=== PATIENT | male | born 1955 | race Caucasian/White ===

== ENCOUNTER 2018-08-09 15:41 | Emergency (ER) | payer OTHER, SELFPAY ==
[2018-08-09 15:41] VITALS: BP 142/80; PULSE 106; RESP 16; TEMP 36.9; O2SAT 93; BMI 38.0
--- NOTE | 2018-08-09 16:11 | CT_ITS ---
STUDY: CT ABDOMEN AND PELVIS WITHOUT CONTRAST REASON FOR EXAM: Male, 63 years old. Diverticulitis?. RADIATION DOSAGE (If Supplied By Facility): CTDIvol = ( 17.07 ) mGy, DLP = ( 1270.48 ) mGycm TECHNIQUE: Transaxial images were obtained from the dome of the diaphragm to the symphysis pubis without oral contrast, and without intravenous contrast. Sagittal and coronal images were reconstructed. Individualized dose optimization techniques were used for this CT. COMPARISON: None. FINDINGS: The visualized lung bases are unremarkable. The visualized portions of the heart are within normal limits. Normal liver. Normal gallbladder and extrahepatic biliary system. Normal spleen. Normal pancreas. Normal bilateral adrenal glands. There appear to be bilateral peripelvic cysts. There are additional cysts within the right kidney. There is a small hiatal hernia. Normal small intestine. There are diverticula throughout the colon. There is circumferential wall thickening of the sigmoid colon associated with adjacent stranding. There are anastomotic sutures within the distal sigmoid colon. The appendix is visualized and appears normal. There is diffuse atherosclerotic calcification of the abdominal aorta, without a demonstrated aneurysm. Normal inferior vena cava. Normal retroperitoneum. Normal urinary bladder. Normal abdominal wall. There is a grade 2 anterior spondylolisthesis of L5 on S1. There are degenerative changes of the lumbar spine. CT/Abdomen/Pelvis W IV Cont ONLY IMPRESSION: Mild acute diverticulitis of the sigmoid colon. Atherosclerosis. Hiatal hernia. Degenerative changes. Grade 2 anterior spondylosis is of L5 on S1. Electronically Signed: Francy Rao MD at 17:48 EST Tel , Service support ,
[2018-08-09 16:41] VITALS: TEMP 36.9
[2018-08-09] MEDS: 0.9% Normal Saline 1,000 ML 1000 ML IV (16:57)
[2018-08-09 17:02] VITALS: TEMP 36.9
[2018-08-09 17:03] LABS: Absolute Lymphocyte Count 2.97 X10^3/ul (0.83-4.51); Absolute Neutrophil Count 6.9 X10^3/uL (2.0-7.7); Basophil# 0.04 X10^3/uL; Basophil% 0.3 % (0-1); Eosinophil# 0.23 X10^3/uL; Eosinophils% 1.9 % (0-5); Hematocrit 48.8 % (40-54); Hemoglobin 16.8 g/dl (13.0-16.5); Lymphocyte # 2.97 X10^3/ul (4.0); Lymphocyte % 24.4 % (19-41); Mean Corp Hgb Conc 34.4 g/gl (32-36); Mean Corpuscular Hgb 28.1 pg (27.0-32.0); Mean Corpuscular Volume 81.6 fL (80-94); Mean Platelet Vol. 10.2 fl (6.2-12.0); Monocyte# 1.99 X10^3/uL; Monocyte% 16.4 % (0-10); Neutrophil # 6.89 X10^3/uL (2.7-7.7); Neutrophil % 56.8 % (47-70); Platelet Count 248 K/mm3 (150-450); RBC Distribution Width SD 41.7 fl (35.1-43.9); Red Blood Count 5.98 M/mm3 (4.6-6.2); White Blood Count 12.2 K/mm3 (4.4-11.0)
[2018-08-09 17:08] LABS: Bacteria 0 SEEN /hpf (None Seen); Mucous, Urine 0 SEEN /hpf (<or=2+); Red Blood Cells-Urine 0 SEEN /hpf (0-5); Squamous Epithelial Cells - UA 0 SEEN /hpf (0-5)
[2018-08-09 17:12] LABS: ALB/GLOB Ratio 0.9 RATIO (0.9-2.4); AST(SGOT) 21 U/L (15-37); Alanine Aminotransfer ALT/SGPT 33 U/L (16-61); Albumin, Serum 3.5 g/dL (3.2-5.0); Alkaline Phosphatase 56 U/L (45-117); Anion Gap 9 (5-15); BUN 17 mg/dL (7-18); BUN/Creat Ratio 14.8 RATIO (10-20); Calcium,Total 8.7 mg/dL (8.5-10.1); Chloride 103 mmol/L (98-107); Creatinine, Serum 1.15 mg/dL (0.70-1.30); EST Glomerular Filtration Rate 68 mL/min (>60); Est Glom Filt Rate - Afr Amer 82 mL/min (>60); Glucose 104 mg/dL (74-106); Lipase 231 U/L (73-393); Potassium 3.2 mmol/L (3.5-5.1); Protein, Total 7.5 g/dL (6.4-8.2); Sodium Level 140 mmol/L (136-145)
[2018-08-09 17:22] LABS: Differential Indicated SCAN CRITERIA MET; POSITIVE COUNT NO; POSITIVE DIFFERENTIAL YES; POSITIVE MORPHOLOGY NO
[2018-08-09 17:26] LABS: Color, Urine Yellow (Yellow); Glucose, Dipstick Normal (Normal); Ketone-Dipstick 5 mg/dl (Negative); Leukocyte Esterase-Dipstick 25 /ul (Negative); Nitrite-Dipstick Negative (Negative); Occult Blood-Urine 10 /ul (Negative); Protein-Dipstick 15 mg/dl (Negative); Urine Bilirubin Dipstick Negative (Negative); Urine Clarity Clear (Clear); Urine Urobilinogen Normal (Normal)
[2018-08-09 17:34] LABS: Differential Comment SCANNED
[2018-08-09 17:43] LABS: White Blood Cells 0-5 SEEN /hpf (0-5)
--- NOTE | 2018-08-09 18:06 | ED.VISSUMM ---
- ER Visit Summary Date of Service: 08/09/18 Chief Complaint: Diarrhea History of Present Illness: The patient is a 63 M with diarrhea for 4 days. Denies bleeding or black or tarry stools. He has had low-grade fevers and pain with bowel movements. No travel, recent antibiotics, or exposures to people with diarrhea. He has a history of similar symptoms in the past with diverticulitis. He required a colectomy because he had continued inflammation and infection despite multiple rounds of antibiotics. Physical Examination: Afebrile and vital signs unremarkable except for heart rate of 106. Patient is alert and oriented. Nontoxic and in no acute distress. Heart regular. Lungs clear. Abdomen soft and nontender. Skin appears normal. Test Results: White count 12.2, hemoglobin 16.8. Potassium 3.2, total bilirubin 1.7. Lipase normal. Urinalysis unremarkable. CT showed diverticulitis without complication. He has atherosclerosis, hiatal hernia, degenerative changes, and grade 2 anterior spondylosis L5 on S1. Emergency Department Course and Treatment: Patient treated with fluids. He declined pain medicine. Workup showed diverticulitis without complication. Labs as noted above. Clinically, he appears very well. I believe he is appropriate for outpatient treatment and started him on Cipro and Flagyl. He declined pain medicine. I advised him that treatment can fail and that if he is getting sicker or having problems he should come back right away. Otherwise he will follow-up with his doctor. I reviewed the findings with the patient and his family and all questions were answered. Patient will be discharged. Treatment Plan: As above Disposition: Discharge Impression: 1. Acute diverticulitis This note was generated with SmartThingsation software. It may contain incorrect words, spelling, and punctuation that were not noted in review of the chart prior to signing ED Disposition - Plan for ED Patient: Referrals: Shane Cartwright MD [Primary Care Provider] -
--- NOTE | 2018-08-09 18:09 | ED.DCSUM_ITS ---
- ER Visit Summary Date of Service: 08/09/18 Chief Complaint: Diarrhea History of Present Illness: The patient is a 63 M with diarrhea for 4 days. Denies bleeding or black or tarry stools. He has had low-grade fevers and pain with bowel movements. No travel, recent antibiotics, or exposures to people wit h diarrhea. He has a history of similar symptoms in the past with diverticulitis. He required a colectomy because he had continued inflammation and infection despite multiple rounds of antibiotics. Physical Examination: Afebrile and vital signs unremarkable except for heart rate of 106. Patient is alert and oriented. Nontoxic and in no acute distress. Heart regular. Lungs clear. Abdomen soft and nontender. Skin appears normal. Test Results: White count 12.2, hemoglobin 16.8. Potassium 3.2, total bilirubin 1.7. Lipase normal. Urinalysis unremarkable. CT showed diverticulitis without complication. He has atherosclerosis, hiatal hernia, degenerative changes, and grade 2 anterior spondylosis L5 on S1. Emergency Department Course and Treatment: Patient treated with fluids. He declined pain medicine. Workup showed diverticulitis without complication. Labs as noted above. Clinically, he appears very well. I believe he is appropriate for outpatient treatment and started him on Cipro and Flagyl. He declined pain medicine. I advised him that treatment can fail and that if he is getting sicker or having problems he should come back right away. Otherwise he will follow-up with his doctor. I reviewed the findings with the patient and his family and all questions were answered. Patient will be discharged. Treatment Plan: As above Disposition: Discharge Impression: 1. Acute diverticulitis This note was generated with Kng[employer] software. It may contain incorrect words, spelling, and punctuation that were not noted in review of the chart prior to signing ED Disposition - Plan for ED Patient: Referrals: Shane Cartwright MD [Primary Care Provider] -
--- NOTE | 2018-08-09 18:09 | ED.DEP ---
ED Disposition - Plan for ED Patient: Instructions: ED Diverticulitis Prescriptions: Metronidazole [Flagyl] 500 mg PO Q8H 10 Days #30 tab Ciprofloxacin [Cipro] 500 mg PO BID 10 Days #20 tab Referrals: Shane Cartwright MD [Primary Care Provider] -
[2018-08-09] MEDS: metroNIDAZOLE 500 MG Tablet PO (18:26)
[2018-08-09] MEDS: Ciprofloxacin 500 MG Tablet PO (18:26)
[2018-08-09 18:27] VITALS: BP 159/89; PULSE 91; RESP 16; RESP 18; O2SAT 98
== END 2018-08-09 18:29 | disposition home or self-care (01) ==
PROVIDERS: Emergency Provider Emergency Medicine; Family Provider Family Medicine; PCP Family Medicine
DX: K57.32 Diverticulitis of large intestine without perforation or abscess without bleeding (principal)
CPT/HCPCS: 74177; 80053; 81001; 83690; 85025; 96360; 99284; J7030; Q9967

== ENCOUNTER → 2022-06-19 | Outpatient (CLI) | payer MEDICARE, SELFPAY ==
--- NOTE | 2022-06-19 07:58 | EKG12_ITS ---
Test Reason : PRE OP Blood Pressure : / mmHG Vent. Rate : 102 BPM Atrial Rate : 102 BPM P-R Int : 236 ms QRS Dur : 084 ms QT Int : 332 ms P-R-T Axes : 066 046 037 degrees QTc Int : 432 ms Sinus tachycardia with 1st degree A-V block Low voltage QRS Poor R wave progression Confirmed by CLAUDETTE WORRELL, VIC ([id number]), scientific publications editor MANUELA ESCOBEDO ([id number]) on 06/20/2022 9:00:07 AM Referred By: NGUYỄN Confirmed By:VIC WILKINS MD
--- NOTE | 2022-06-19 07:59 | CT_ITS ---
STUDY: CT SCAN LOWER EXTREMITY LEFT. [facility] protocol. REASON FOR EXAM: Male, 67 years old. PREOP RADIATION DOSAGE (If Supplied By Facility): CTDIvol = ( 19.37 ) mGy, DLP = ( 1438.07 ) mGycm. Individualized dose optimization techniques were used for this CT.? TECHNIQUE: Multiple axial tomographic images of the left hip, left knee and left ankle joints were obtained. Coronal and sagittal reconstruction was obtained as well. COMPARISON: None. FINDINGS: Imaging of the hip joint was obtained. There is a moderate degree of joint space narrowing. Degenerative spur formation along the inferior medial aspect of the femoral head. I suspect a mild degree of the femoral acetabular impingement. Imaging of the knee joint was obtained. There is a marked degree of joint space narrowing in the joint degeneration of the medial compartment of knee joint with the degenerative spur formation and subchondral cysts involving the medial femoral condyle. Mild degree of joint space narrowing involving the patellofemoral joint. Imaging of the ankle joint was obtained. There is evidence of calcaneal spurs. There is a 5.2 mm x 5 mm sclerotic rounded density in the dome of the calcaneus suggestive of possible bone island. CT/Extremity Lower without Contra IMPRESSION: Marked degree of joint space narrowing involving the medial compartment knee joint with subchondral cysts and degenerative spur formation of the medial femoral condyle. Electronically Signed: Bernard Adan MD at 13:36 EST ,
--- NOTE | 2022-06-19 07:59 | RAD_ITS ---
STUDY: X-RAY CHEST REASON FOR EXAM: Male, 67 years old. PREOP TECHNIQUE: PA and lateral views of the chest. COMPARISON: None. FINDINGS: Scattered calcified granulomas. There is no demonstrated pleural abnormality. Normal size heart. Normal mediastinum and miguel angel. Normal visualized pulmonary arteries. Normal visualized aortic arch and descending thoracic aorta. There are degenerative changes of the visualized thoracic spine. Normal visualized ribs, clavicles, and shoulders. There is no demonstrated abnormality of the visualized soft tissue structures of the upper abdomen. RAD/Chest PA and Lateral IMPRESSION: No acute abnormality seen. Electronically Signed: Bernard Adan MD at 13:27 EST ,
== END | disposition home or self-care (01) ==
PROVIDERS: PCP Family Medicine; Visit Provider Orthopaedic Surgery
DX: Z01.810 Encounter for preprocedural cardiovascular examination (principal); M17.32 Unilateral post-traumatic osteoarthritis, left knee
CPT/HCPCS: 71046; 73700; 93005

== ENCOUNTER → 2022-07-13 | Outpatient (CLI) | payer MEDICARE, SELFPAY ==
[2022-07-13 16:30] LABS: Absolute Lymphocyte Count 3.49 X10^3/uL (0.83-4.51); Basophil# 0.07 X10^3/uL; Basophil% 0.6 % (0-1); Eosinophils% 2.5 % (0-5); Hematocrit 50.4 % (40-54); Lymphocyte # 3.49 X10^3/ul (0.83-4.51); Lymphocyte % 29.5 % (19-41); Mean Corp Hgb Conc 33.7 g/dL (32-36); Mean Corpuscular Hgb 28.3 pg (27.0-32.0); Mean Corpuscular Volume 83.9 fL (80-94); Monocyte# 0.93 X10^3/uL; Monocyte% 7.9 % (0-10); NRBC Flagged by Analyzer 0 % (0-5); Neutrophil # 7.01 X10^3/uL (2.7-7.7); Neutrophil % 59.2 % (47-70); Platelet Count 257 K/mm3 (150-450); RBC Distribution Width CV 13.2 % (11.6-14.6); RBC Distribution Width SD 40.2 fl (35.1-43.9); Red Blood Count 6.01 M/mm3 (4.6-6.2); White Blood Count 11.8 K/mm3 (4.4-11.0)
[2022-07-13 17:07] LABS: Anion Gap 2 (5-15); BUN 15 mg/dL (7-18); BUN/Creat Ratio 14.9 RATIO (10-20); Calcium,Total 9.4 mg/dL (8.5-10.1); Chloride 102 mmol/L (98-107); Creatinine, Serum 1.01 mg/dL (0.70-1.30); EST Glomerular Filtration Rate 78 mL/min (>60); Est Glom Filt Rate - Afr Amer 94 mL/min (>60); Glucose 117 mg/dL (74-106); Potassium 3.9 mmol/L (3.5-5.1); Sodium Level 137 mmol/L (136-145)
== END | disposition home or self-care (01) ==
LOC: LAB 16:16
PROVIDERS: PCP Family Medicine; Referring Provider Physician Assistant; Visit Provider Physician Assistant
DX: Z01.818 Encounter for other preprocedural examination (principal)
CPT/HCPCS: 36415; 80048; 85025

== ENCOUNTER → 2022-07-20 | Outpatient (CLI) | payer MEDICARE, SELFPAY ==
[2022-07-20 10:52] LABS: Absolute Lymphocyte Count 4.02 X10^3/uL (0.83-4.51); Absolute Neutrophil Count 8.4 X10^3/uL (2.0-7.7); Basophil# 0.07 X10^3/uL; Basophil% 0.5 % (0-1); Eosinophil# 0.24 X10^3/uL; Eosinophils% 1.7 % (0-5); Hematocrit 51.1 % (40-54); Hemoglobin 16.6 g/dL (13.0-16.5); Lymphocyte # 4.02 X10^3/ul (0.83-4.51); Lymphocyte % 29.1 % (19-41); Mean Corp Hgb Conc 32.5 g/dL (32-36); Mean Corpuscular Hgb 27.5 pg (27.0-32.0); Mean Corpuscular Volume 84.6 fL (80-94); Mean Platelet Vol. 10.2 fl (6.2-12.0); Monocyte# 0.98 X10^3/uL; Monocyte% 7.1 % (0-10); NRBC Flagged by Analyzer 0 % (0-5); Neutrophil # 8.41 X10^3/uL (2.7-7.7); Platelet Count 254 K/mm3 (150-450); RBC Distribution Width CV 13.2 % (11.6-14.6); RBC Distribution Width SD 40.4 fl (35.1-43.9); Red Blood Count 6.04 M/mm3 (4.6-6.2); White Blood Count 13.8 K/mm3 (4.4-11.0)
[2022-07-20 11:24] LABS: Anion Gap 6 (5-15); BUN 18 mg/dL (7-18); BUN/Creat Ratio 16.4 RATIO (10-20); Calcium,Total 9.3 mg/dL (8.5-10.1); Chloride 101 mmol/L (98-107); EST Glomerular Filtration Rate 71 mL/min (>60); Est Glom Filt Rate - Afr Amer 86 mL/min (>60); Glucose 135 mg/dL (74-106); Sodium Level 137 mmol/L (136-145)
[2022-07-20 13:51] LABS: Hemoglobin A1c 5.9 % (3.8-5.6)
== END | disposition home or self-care (01) ==
LOC: LAB 10:26
PROVIDERS: PCP Family Medicine; Referring Provider Orthopaedic Surgery; Visit Provider Orthopaedic Surgery
DX: Z01.818 Encounter for other preprocedural examination (principal); R73.09 Other abnormal glucose
CPT/HCPCS: 36415; 80048; 83036; 85025

== ENCOUNTER → 2022-08-01 | Outpatient (CLI) | payer MEDICARE, SELFPAY | END | disposition home or self-care (01) | LOC: PSN 12:03 | PROVIDERS: PCP Family Medicine; Visit Provider Physician Assistant | DX: R73.09 Other abnormal glucose (principal) | CPT/HCPCS: 87635; C9803; U0003; U0005 ==

== ENCOUNTER → 2022-08-03 | Outpatient (CLI) | payer MEDICARE, SELFPAY ==
--- NOTE | 2022-08-03 08:00 | KNEE_PTH ---
PATIENT: GLENNA RUIZ LOC: [facility] U#:[id number] AGE/SX: 67/M ROOM: RE08/03/[address]: Dr. Adrien Troncoso MD : 1955 BED: DIS: 08/03/2022 SPEC #: [id number] RECD: 08/03/22 15:05 STATUS: JILLIAN GUAJARDO #: [id number] ERICKA: 08/03/22 08:[address]: Adrien Troncoso DEPT: SURGICAL PATHOLOGY RECD BY: Lexie Grissom ENTERED: 08/06/22 08:40 SP TYPE: TOTAL KNEE OTHR DR: Dr. Shane Cartwright MD [facility] Tissues: Knee, NOS Procedures: Decalcification bone/plaque Surgery Specimen Level IV HEADER OPERATION: Left total knee replacement PRE-OP DIAGNOSIS: Left knee severe posttraumatic osteoarthritis TISSUE SUBMITTED: Left knee bone and tissue MICROSCOPIC DIAGNOSIS Bone and soft tissue, left knee, total knee replacement/resection: Pieces of bone with degenerative osteoarthritic changes. Fibroadipose tissue, fibroconnective tissue and synovial tissue. CARLA:adolfo 08/09/2022 MICROSCOPIC DESCRIPTION Slides are reviewed. GROSS DESCRIPTION Received is one container designated bone and soft tissue left knee. The specimen consists of multiple fragments of black-yellow bone measuring in aggregate 16 x 12 x 2 cm. Also in the specimen container are multiple fragments of yellow-white soft tissue measuring in aggregate 2 x 1 x 0.5 cm. A number of bony fragments contain articular surfaces consistent with tibial plateau and femoral condyle and displaying prominent osteophyte formation, eburnation, and bone erosion. Mechanotherapist sections are submitted in two cassettes as follows: 1 - soft tissue, 2 - bone after decalcification. / AM:adolfo 08/06/2022 TC:5 [facility]: [id number]
== END | disposition home or self-care (01) ==
LOC: LABSPEC 16:03
PROVIDERS: PCP Family Medicine; Visit Provider Orthopaedic Surgery
DX: M17.32 Unilateral post-traumatic osteoarthritis, left knee (principal)
CPT/HCPCS: 88305; 88311

== ENCOUNTER → 2022-09-13 | Outpatient (CLI) | payer MEDICARE, SELFPAY ==
--- NOTE | 2022-09-13 14:07 | VDLE_ITS ---
Reason For Study: Pain Procedure LEFT This is a venous duplex using B-mode, color GSV is normal. flow and spectral Doppler. CFV is compressible, spontaneous, phasic, Exam performed in department. competent, and demonstrates normal A preliminary report was called and/or faxed augmentation. to RN @ PCP: Raya's office. FV is compressible, spontaneous, phasic, competent and demonstrates normal augmentation. POP V is compressible, spontaneous, phasic, competent and demonstrates normal augmentation. PTV is compressible. LT PerV is compressible. Acute deep vein thrombosis is noted in the left T/P Trunk, minimal venous flow. VL/Venous Duplex US, Unilateral Interpretation Summary Acute deep venous thrombosis left tibial peroneal trunk. Patent and compressible left great saphenous vein Ordering Physician: Adrien Troncoso Referring Physician: MD Gabbie Shane Performed By: Gaby Garza RVT
== END | disposition home or self-care (01) ==
LOC: CVS 14:01
PROVIDERS: PCP Family Medicine; Visit Provider Orthopaedic Surgery
DX: M79.662 Pain in left lower leg (principal)
CPT/HCPCS: 93971

== ENCOUNTER → 2023-09-17 | Outpatient (CLI) | payer MEDICARE, SELFPAY ==
--- NOTE | 2023-09-16 09:15 | HIP_PTH ---
PATHOLOGY RESULTS PATIENT: GLENNA RUIZ LOC: [facility] U#:[id number] AGE/SX: 68/M ROOM: RE09/17/[address]: Dr. Adrien Troncoso MD : 1955 BED: DIS: 09/17/2023 SPEC #: [id number] RECD: 09/17/23 15:35 STATUS: JILLIAN RELink #: [id number] ERICKA: 09/16/23 09:[address]: Adrien Troncoso DEPT: SURGICAL PATHOLOGY RECD BY: Lexie Grissom ENTERED: 09/18/23 09:36 SP TYPE: TOTAL HIP OTHR DR: Dr. Shane Cartwright MD [facility] Tissues: Hip, NOS Procedures: Decalcification bone/plaque Surgery Specimen Level IV HEADER OPERATION: Left total hip replacement PRE-OP DIAGNOSIS: Unilateral primary osteoarthritis, left hip TISSUE SUBMITTED: Left hip MICROSCOPIC DIAGNOSIS Left hip bone and soft tissue, total hip replacement/resection: Femoral head with degenerative osteoarthritic changes. : 09/23/2023 MICROSCOPIC DESCRIPTION Slides are reviewed. GROSS DESCRIPTION Received is one container labeled with the patient's name and designated bone and soft tissue Left hip. The specimen consists of a black femoral head with portion of femoral neck. The femoral head measures 5.0 x 4.5 x 4.0 cm and the femoral neck measures 1.2 cm in length. The articular surface displays prominent osteophyte formation, eburnation and bone erosion. Also present in the specimen container are multiple irregular fragments of bone reamings measuring in aggregate 7.0 x 7.0 x 1.5 cm. Adult Crossing Guard sections are submitted in two cassettes after decalcification as follows: 1 - bone reamings, 2 - bone. / CARLA/ 09/18/2023 TC:5 [facility]: [id number], [id number]
--- OUTSIDE RECORDS SUMMARY | 2023-09-18 02:35 | XMS RPT_ITS | CCD ---
Author Name Unknown Address [address] [place] [address] Organization [facility] Care Team Providers Care Deli Clerk Name Role Phone Mendy Rosenthal MD Primary Care Provider David Castro Unavailable [phone] Admitting Unavailable BRANDI ADRIAN DR Primary Care Unavailable BRANDI ADRIAN DR Attending Unavailable MENDY ROSENTHAL Consulting Unavailable PROVIDER, UNKNOWN Consulting Unavailable MENDY ROSENTHAL Consulting Unavailable BRANDI ADRIAN DR Admitting Unavailable BRANDI ADRIAN DR Primary Care Unavailable BRANDI ADRIAN DR Attending Unavailable PROVIDER, UNKNOWN Consulting Unavailable David Castor OD Unavailable MENDY ROSENTHAL Primary Care Unavailable MENDY ROSENTHAL Attending Unavailable MENDY ROSENTHAL Attending Unavailable MENDY ROSENTHAL Primary Care Unavailable MENDY ROSENTHAL Attending Unavailable MENDY ROSENTHAL Primary Care Unavailable Medications Current Medications Medication Drug Class(es) Dates Sig (Normalized) Sig (Original) apixaban 5 mg oral tablet (6 sources) Factor Xa Inhibitor Start: 10-13-2022 End: 12-12-2022 take 1 tablet by mouth twice daily apixaban (ELIQUIS) 5 mg tab(s) Indications: Acute deep vein thrombosis (DVT) of tibial vein of left lower extremity (HCC) Take 1 tablet by mouth twice daily. 60 tablet 1 10/13/2022 12/12/2022 Active Completed/Discontinued Medications Medication Drug Class(es) Dates Sig (Normalized) Sig (Original) acetaminophen 500 mg oral tablet (5 sources) Start: 09-20-2022 take 2 tablets by mouth every eight hours as needed acetaminophen (TYLENOL EXTRA STRENGTH) 500 mg tablet Take 2 tablets by mouth three times daily as needed for pain. 0 09/20/2022 Active Problems Problem Classification Problem Date Documented Da te Episodic/Chronic Diverticulosis and diverticulitis (7 sources) Diverticulitis of large intestine without perforation or abscess without bleeding; Translations: [Diverticulitis of colon (without mention of hemorrhage)] Onset: 01-08-2008 01-08-2008 Chronic Other connective tissue disease (1 source) History of total knee arthroplasty; Translations: [Presence of left artificial knee joint] Chronic Other non-traumatic joint disorders (1 source) Hip pain; Translations: [Pain in left hip] 08-23-2023 Episodic Phlebitis; thrombophlebitis and thromboembolism (2 sources) Acute deep venous thrombosis of tibial vein of left leg; Translations: [Acute embolism and thrombosis of left tibial vein] Episodic Results Test Name Value Interpretation Reference Range Facil ity Vital Signs Date Time Vital Sign Value Performing Clinician Nesha litkelvin 08-23-2023 09:52-0500 Body weight 119.11 kg Mendy Rosenthal MD Work Phone: [facility] 08-23-2023 09:52-0500 Diastolic blood pressure 82 mm[Hg] Mendy Rosenthal MD Work Phone: [facility] 08-23-2023 09:52-0500 Heart rate 84 /min Mendy Rosenthal MD Work Phone: [facility] 08-23-2023 09:52-0500 Respiratory rate 18 /min Mendy Rosenthal MD Work Phone: [facility] 08-23-2023 09:52-0500 Systolic blood pressure 134 mm[Hg] Mendy Rosenthal MD Work Phone: [facility] 12-21-2022 09:27-0400 Body weight 122.47 kg Mendy Rosenthal MD Work Phone: [facility] 12-21-2022 09:27-0400 Diastolic blood pressure 78 mm[Hg] Mendy Rosenthal MD Work Phone: [facility] 12-21-2022 09:27-0400 Heart rate 74 /min Mendy Rosenthal MD Work Phone: [facility] 12-21-2022 09:27-0400 Respiratory rate 18 /min Mendy Rosenthal MD Work Phone: [facility] 12-21-2022 09:27-0400 Systolic blood pressure 130 mm[Hg] Mendy Rosenthal MD Work Phone: [facility] 09-20-2022 15:08-0400 Body weight 119.75 kg Mendy Rosenthal MD Work Phone: [facility] 09-20-2022 15:08-0400 Diastolic blood pressure 84 mm[Hg] Mendy Rosenthal MD Work Phone: [facility] 09-20-2022 15:08-0400 Heart rate 78 /min Mendy Rosenthal MD Work Phone: [facility] 09-20-2022 15:08-0400 Respiratory rate 18 /min Mendy Rosenthal MD Work Phone: [facility] 09-20-2022 15:08-0400 Systolic blood pressure 130 mm[Hg] Mendy Rosenthal MD Work Phone: [facility] Encounters Encounter Date Encounter Type Care Provider Facility Start: 08-23-2023 End: 08-23-2023 ambulatory MENDY ROSENTHAL Facility:[facility] Start: 08-23-2023 End: 08-23-2023 Patient encounter procedure Mendy Rosenthal MD Work Phone: [facility] Procedures Date Procedure Procedure Detail Performing Clinician Start: 01-08-2008 Colonoscopy Jennifer fournier MA Plan of Treatment Date Care Activity Detail Author Start: 12-22-2023 COLORECTAL CANCER SCREENING COLORECTAL CANCER SCREENING [facility] Immunizations Immunization Date Immunization Notes Care Provider Fa cili 04-07-2018 influenza, high dose seasonal, preservative-free Jennifer Cerrato MA [facility] 04-07-2018 influenza virus vaccine, unspecified formulation Mendy Rosenthal MD Work Phone: [facility] 04-07-2014 influenza, seasonal, injectable Jennifer Cerrato MA [facility] Payers Date Payer Category Payer Medicare [id number] 2020 Unknown [id number] 1955 Unknown [id number] 1955 Unknown [id number] Social History Date Type Detail Facility Start: 08-27-2018 End: 09-20-2022 Tobacco smoking status NHIS Never smoked tobacco [facility] Start: 08-27-2018 End: 09-20-2022 Tobacco use and exposure Smokeless tobacco non-user [facility] Start: 07-17-2021 End: 12-21-2022 Alcohol intake Current non-drinker of alcohol (finding) [facility] Start: 1955 Sex Assigned At Not on file [facility] Start: 12-21-2022 End: 08-23-2023 History of Social function [facility] Work Phone: Start: 12-21-2022 End: 08-23-2023 Tobacco use panel [facility] Work Phone: Adult Depression Screening Assessment 0 [facility] Work Phone: Clinical Notes 08-21-2022 to 08-23-2023 Telephone Encounter - La Nena Stubbs Ma - 08/23/2023 10:27 AM ESTTelephone Encounter - Nicole Romero Ma - 08/13/2023 4:50 PM ESTTelephone Encounter - Mendy Rosenthal MD - 08/13/2023 4:38 PM EST Note Date & Type Note Facility 08-23-2023 Note HNO ID: [id number] Author: MENDY ROSENTHAL MD Service: ? Author Type: Physician Type: Progress Notes Filed: 08/23/2023 10:11 Note Text: Chief Complaint Patient presents with: Pre-Op Exam HPI Glenna Joseph is a 68 year old male who presents here today for pre op exam. Here today with his . Pt scheduled to have L Total Hip Replacement on 09/16/[address] Adrian through [facility]. He has been given prescriptions by Ortho for Oxycodone, Pepcid, Xarelto 10 mg and Zofran to use post operatively. Currently on no prescribed medications, may occasionally use Tylenol. Denies any previous issues with surgeries or with anesthesia. Did have an acute DVT after previous L TKR on 08/03/22. Reports that after surgery, about 2-3 weeks he starting having leg pain. An US was ordered showing a DVT. Pt was started on Eliquis 5 mg bid. He was on this medication for 3 months. Has been off medication since this time and is stable doing well. Cardio - Denies any chest pain, sob or dizziness. Her currently is scheduled for pre - op exam with Dr. Adrian's [facility] on 09/09/23. He did have PAT testing at [facility] on 08/06/23 as patient was supposed to have his surgery originally in August. Labs and EKG reviewed. Past medical history, appointments, medications, allergies reviewed. Previous Medical History PAST MEDICAL HISTORY Diagnosis Date Diverticulitis of colon (without mention of hemorrhage)(562.11) Previous Surgical History PAST SURGICAL HISTORY Procedure Laterality Date ADENOIDECTOMY PRIMARY Adenoidectomy COLONOSCOPY FLX DX W/COLLJ SPEC WHEN PFRMD 01/08/08 Sigmoid diverticulitis TONSILLECTOMY PRIMARY/SECONDARY Tonsillectomy Family History FAMILY HISTORY Problem Relation Age of Onset Diabetes Mother Cancer Mother 80 uterine Thyroid Mother Hyperlipidemia Mother Diabetes Father Ischemic Heart Disease Father 80 cardiac arrhythmia Hypertension Father Hyperlipidemia Father Patient Allergies ALLERGIES No Known Allergies Current Medications Current Outpatient Medications on File Prior to Visit Medication Sig acetaminophen (TYLENOL EXTRA STRENGTH) 500 mg tablet Take 2 tablets by mouth three times daily as needed for pain. aspirin, enteric coated (ECOTRIN LOW STRENGTH) 81 mg EC tablet Take 1 tablet by mouth once daily. No current facility-administered medications on file prior to visit. Social History Social History Tobacco Use Smoking status: Never Smokeless tobacco: Never Substance Use Topics Alcohol use: No Drug use: No EXAM: BP 134/82 (BP Site: Left Arm, BP Position: Sitting, BP Cuff Size: Large Adult) Pulse 84 Resp 18 Wt 119.1 kg (262 lb 9.6 oz) BMI 37.68 kg/m? General Appearance: Well appearing, alert, in no acute distress, well-hydrated, well nourished. and Obese. Neck: Supple, no adenopathy; thyroid symmetric, normal size, no bruits. Lungs: Lungs clear to auscultation. No wheezing, rhonchi, rales.. Heart: RRR without murmur, gallop, or rubs. No ectopy. Health Maintenance List DTaP,Tdap,Td Vaccine(1 - Tdap) Never done Lipid Screening Never done Shingrix Vaccine(1 of 2) Never done RSV Vaccine(1 - 1-dose 60+ series) Never done Diabetes Screening due on 01/23/2023 Influenza Vaccine(1) due on 03/08/2023 Covid-19 Vaccine(3 - season) due on 03/08/2023 Advance Directive Discussion Never done Depression Assessment due on 07/08/2023 Colorectal Cancer Screening due on 12/22/2023 Hepatitis C Screening due on 12/22/2023 Pneumococcal Vaccine: 65+(1 of 1 - PCV) due on 12/22/2023 Data reviewed Care Everywhere EKG/Labs from [facility] ASSESSMENT/PLAN: 1. Pre-op examination - ICD9: V72.84, ICD10: Z01.818 (primary diagnosis) - Reviewed EKG/Labs - Form completed and will be faxed to [facility] 2. Chronic left hip pain - ICD9: 719.45, 338.29, ICD10: M25.552, G89.29 - Follow up with Dr. Adrian Follow up as needed. I agree with the Chief Complaint, ROS, and Past Histories independently gathered by the clinical academic support coordinator and the remaining scribed note accurately describes my personal service to the patient. I spent a total of 20 minutes on the date of the service which included preparing to see the patient, [id number] patient care, completing clinical documentation, obtaining and/or reviewing separately obtained history, performing a medically appropriate examination, counseling and educating the patient/family/caregiver, and communicating with other HCPs (not separately reported). Mendy Rosenthal MD The documentation for this note was completed by La Nena Stubbs Ma acting as scribe for Mendy Rosenthal MD. August 23, 2023 10:02 AM. La Nena Stubbs Ma [facility] 08-23-2023 Miscellaneous Notes Formattin g of this note might be different from the original. Form completed and faxed back to information below with OV note from 08/23/23. La Nena Stubbs Ma Spoke with pt, his surgery was moved to September 15. He is scheduled for pre op with PCP on Saturday08/23/23. Form placed in upcoming appt folder. Nicole Romero Ma Needs appt for pre op clearance Mendy Rosenthal MD Type of form: [facility] Surgical Clearance Form for L Total Hip Replacement on 08/19/23. Form received via fax When form is completed, Fax form to [phone] Form has been forwarded to Physician Desk: Dr. Rosenthal Pt has not been seen in office since 12/21/22. Hx of DVT after having L TKR, started on Eliquis 5 mg bid. Pt has no appt scheduled. Does pt need to be seen prior to completing clearance? La Nena Stubbs Ma documented in this encounter [facility] 08-23-2023 History of Presen t illness Narrative Chief Complaint Patient presents with: Pre-Op Exam HPI Glenna Zamora is a 68 year old male who presents here today for pre op exam. Here today with his . Pt scheduled to have L Total Hip Replacement on 09/16/[address] Adrian through [facility]. He has been given prescriptions by Ortho for Oxycodone, Pepcid, Xarelto 10 mg and Zofran to use post operatively. Currently on no prescribed medications, may occasionally use Tylenol. Denies any previous issues with surgeries or with anesthesia. Did have an acute DVT after previous L TKR on 08/03/22. Reports that after surgery, about 2-3 weeks he starting having leg pain. An US was ordered showing a DVT. Pt was started on Eliquis 5 mg bid. He was on this medication for 3 months. Has been off medication since this time and is stable doing well. Cardio - Denies any chest pain, sob or dizziness. Her currently is scheduled for pre - op exam with Dr. Adrian's [facility] on 09/09/23. He did have PAT testing at [facility] on 08/06/23 as patient was supposed to have his surgery originally in August. Labs and EKG reviewed. Past medical history, appointments, medications, allergies reviewed. Previous Medical History PAST MEDICAL HISTORY Diagnosis Date Diverticulitis of colon (without mention of hemorrhage)(562.11) Previous Surgical History PAST SURGICAL HISTORY Procedure Laterality Date ADENOIDECTOMY PRIMARY <AGE 11 Adenoidectomy COLONOSCOPY FLX DX W/COLLJ SPEC WHEN PFRMD 01/08/08 Sigmoid diverticulitis TONSILLECTOMY PRIMARY/SECONDARY <AGE 11 Tonsillectomy Family History FAMILY HISTORY Problem Relation Age of Onset Diabetes Mother Cancer Mother 80 uterine Thyroid Mother Hyperlipidemia Mother Diabetes Father Ischemic Heart Disease Father 80 cardiac arrhythmia Hypertension Father Hyperlipidemia Father Patient Allergies ALLERGIES No Known Allergies Current Medications Current Outpatient Medications on File Prior to Visit Medication Sig acetaminophen (TYLENOL EXTRA STRENGTH) 500 mg tablet Take 2 tablets by mouth three times daily as needed for pain. aspirin, enteric coated (ECOTRIN LOW STRENGTH) 81 mg EC tablet Take 1 tablet by mouth once daily. No current facility-administered medications on file prior to visit. Social History Social History Tobacco Use Smoking status: Never Smokeless tobacco: Never Substance Use Topics Alcohol use: No Drug use: No EXAM: BP 134/82 (BP Site: Left Arm, BP Position: Sitting, BP Cuff Size: Large Adult) Pulse 84 Resp 18 Wt 119.1 kg (262 lb 9.6 oz) BMI 37.68 kg/m General Appearance: Well appearing, alert, in no acute distress, well-hydrated, well nourished. and Obese. Neck: Supple, no adenopathy; thyroid symmetric, normal size, no bruits. Lungs: Lungs clear to auscultation. No wheezing, rhonchi, rales.. Heart: RRR without murmur, gallop, or rubs. No ectopy. Health Maintenance List DTaP,Tdap,Td Vaccine(1 - Tdap) Never done Lipid Screening Never done Shingrix Vaccine(1 of 2) Never done RSV Vaccine(1 - 1-dose 60+ series) Never done Diabetes Screening due on 01/23/2023 Influenza Vaccine(1) due on 03/08/2023 Covid-19 Vaccine( season) due on 03/08/2023 Advance Directive Discussion Never done Depression Assessment due on 07/08/2023 Colorectal Cancer Screening due on 12/22/2023 Hepatitis C Screening due on 12/22/2023 Pneumococcal Vaccine: 65+(1 of 1 - PCV) due on 12/22/2023 Data reviewed Care Everywhere EKG/Labs from [facility] ASSESSMENT/PLAN: 1. Pre-op examination - ICD9: V72.84, ICD10: Z01.818 (primary diagnosis) - Reviewed EKG/Labs - Form completed and will be faxed to [facility] 2. Chronic left hip pain - ICD9: 719.45, 338.29, ICD10: M25.552, G89.29 - Follow up with Dr. Adrian Follow up as needed. I agree with the Chief Complaint, ROS, and Past Histories independently gathered by the clinical academic support coordinator and the remaining scribed note accurately describes my personal service to the patient. I spent a total of 20 minutes on the date of the service which included preparing to see the patient, [id number] patient care, completing clinical documentation, obtaining and/or reviewing separately obtained history, performing a medically appropriate examination, counseling and educating the patient/family/caregiver, and communicating with other HCPs (not separately reported). Mendy Rosenthal MD The documentation for this note was completed by La Nena Stubbs Ma acting as scribe for Mendy Rosenthal MD. August 23, 2023 10:02 AM. La Nena Stubbs Ma documented in this encounter [facility] 12-21-2022 Note HNO ID: [id number] Author: Mendy Rosenthal MD Service: ? Author Type: Physician Type: Progress Notes Filed: 12/21/2022 2:57 PM Note Text: Chief Complaint Patient presents with: F/U 3 Month HPI Glenna Zamora is a 67 year old male who presents here today for 3 month follow up. Here with . Been busy with their grand children's hobbies and interests. Depression screening: Denies feeling depressed or hopeless. Depression screening tool completed and reviewed. Based on score and interview, patient is not at risk for depression. Screening tool discussed with patient, and I recommended no further intervention at this time. Pt declined all of the recommended HM recommendations, labs, vaccines, etc. No bowel, Gi, or urinary issues. No chest pains, dizziness, or SOB. DVT: No longer using Eliquis 5 mg BID. This was d/c a week ago, only needed to be treated for 3 months due to clot after knee surgery. Had left knee replacement done in Aug by Dr. Adrian with [facility]. Still gets a little knee swelling in the evenings and stiffness at times. The leg feels ok, some swelling in the lower leg if he is overly active and standing a lot. He is able to do all his normal activities. No longer doing any PT, but does some of the exercises at home for the knee. Past medical history, appointments, medications, allergies reviewed. Previous Medical History PAST MEDICAL HISTORY Diagnosis Date Diverticulitis of colon (without mention of hemorrhage)(562.11) Previous Surgical History PAST SURGICAL HISTORY Procedure Laterality Date ADENOIDECTOMY PRIMARY Adenoidectomy COLONOSCOPY FLX DX W/COLLJ SPEC WHEN PFRMD 01/08/08 Sigmoid diverticulitis TONSILLECTOMY PRIMARY/SECONDARY Tonsillectomy Family History FAMILY HISTORY Problem Relation Age of Onset Diabetes Mother Cancer Mother 80 uterine Thyroid Mother Hyperlipidemia Mother Diabetes Father Ischemic Heart Disease Father 80 cardiac arrhythmia Hypertension Father Hyperlipidemia Father Patient Allergies ALLERGIES No Known Allergies Current Medications Current Outpatient Medications on File Prior to Visit Medication Sig acetaminophen (TYLENOL EXTRA STRENGTH) 500 mg tablet Take 2 tablets by mouth three times daily as needed for pain. aspirin, enteric coated (ECOTRIN LOW STRENGTH) 81 mg EC tablet Take 1 tablet by mouth once daily. albuterol HFA (PROVENTIL HFA, VENTOLIN HFA) 90 mcg/actuation inhaler INHALE 2 PUFFS INSTRUCTED EVERY 4 HOURS NEEDED FOR WHEEZING/SHORTNESS OF BREATH. predniSONE (DELTASONE) 10 mg tablet Take 4 tabs daily for 3 days, then 2 tabs daily for 3 days, then 1 tab daily for 3 days with food. ondansetron orally disintegrating (ZOFRAN ODT) 4 mg disintegrating tablet Take 1 tablet by mouth every 4 hours as needed for Nausea/Vomiting. (Patient not taking: Reported on 07/17/2021 ) tamsulosin ER (FLOMAX) 0.4 mg Take 1 capsule by mouth daily at bedtime. (Patient not taking: Reported on 07/17/2021 ) naproxen (NAPROSYN) 500 mg tablet Take 1 tablet by mouth twice daily as needed (PAIN). TAKE WITH FOOD (Patient not taking: Reported on 07/17/2021 ) No current facility-administered medications on file prior to visit. Social History Social History Tobacco Use Smoking status: Never Smokeless tobacco: Never Substance Use Topics Alcohol use: No Drug use: No EXAM: BP 130/78 Pulse 74 Resp 18 Wt 122.5 kg (270 lb) BMI 38.74 kg/m? General Appearance: Well appearing, alert, in no acute distress, well-hydrated, well nourished. and Overweight. Lungs: Lungs clear to auscultation. No wheezing, rhonchi, rales.. Heart: RRR without murmur, gallop, or rubs. No ectopy. Extremities: left leg; no swelling, no redness, no pain on palpation. Health Maintenance List HEPATITIS C SCREENING Never done DTAP,TDAP,TD(1 - Tdap) Never done LIPID SCREEN Never done SHINGRIX VACCINE(1 of 2) Never done PROSTATE CANCER SCREENING DISCUSSION Never done COLORECTAL CANCER SCREENING due on 01/07/2018 PNEUMOCOCCAL: 65+(1 - PCV) Never done COVID-19 VACCINE(3 - Booster for Moderna series) due on 11/29/2020 ADVANCE DIRECTIVE DISCUSSION Never done DEPRESSION ASSESSMENT Never done DIABETES SCREEN due on 01/23/2023 INFLUENZA(Season Ended) due on 03/08/2023 Data reviewed None ASSESSMENT/PLAN: 1. Acute deep vein thrombosis (DVT) of tibial vein of left lower extremity (HCC) - ICD9: 453.42, ICD10: I82.442 Eliquis treatment completed No further treatment or testing needed Notify office if any redness or swelling returns Follow up as needed. I agree with the Chief Complaint, ROS, and Past Histories independently gathered by the clinical academic support coordinator and the remaining scribed note accurately describes my personal service to the patient. Medical Decision Making: Problems: Low: Stable chronic illness Risk: Moderate: Drug management Medical Decision Making Level: 3 - Low Mendy D (more content not included)... [facility] 12-21-2022 History of Presen t illness Narrative Chief Complaint Patient presents with: F/U 3 Month HPI Glenna Zamora is a 67 year old male who presents here today for 3 month follow up. Here with . Been busy with their grand children's hobbies and interests. Depression screening: Denies feeling depressed or hopeless. Depression screening tool completed and reviewed. Based on score and interview, patient is not at risk for depression. Screening tool discussed with patient, and I recommended no further intervention at this time. Pt declined all of the recommended recommendations, labs, vaccines, etc. No bowel, Gi, or urinary issues. No chest pains, dizziness, or SOB. DVT: No longer using Eliquis 5 mg BID. This was d/c a week ago, only needed to be treated for 3 months due to clot after knee surgery. Had left knee replacement done in Aug by Dr. Adrian with [facility]. Still gets a little knee swelling in the evenings and stiffness at times. The leg feels ok, some swelling in the lower leg if he is overly active and standing a lot. He is able to do all his normal activities. No longer doing any PT, but does some of the exercises at home for the knee. Past medical history, appointments, medications, allergies reviewed. Previous Medical History PAST MEDICAL HISTORY Diagnosis Date Diverticulitis of colon (without mention of hemorrhage)(562.11) Previous Surgical History PAST SURGICAL HISTORY Procedure Laterality Date ADENOIDECTOMY PRIMARY <AGE 11 Adenoidectomy COLONOSCOPY FLX DX W/COLLJ SPEC WHEN PFRMD 01/08/08 Sigmoid diverticulitis TONSILLECTOMY PRIMARY/SECONDARY <AGE 11 Tonsillectomy Family History FAMILY HISTORY Problem Relation Age of Onset Diabetes Mother Cancer Mother 80 uterine Thyroid Mother Hyperlipidemia Mother Diabetes Father Ischemic Heart Disease Father 80 cardiac arrhythmia Hypertension Father Hyperlipidemia Father Patient Allergies ALLERGIES No Known Allergies Current Medications Current Outpatient Medications on File Prior to Visit Medication Sig acetaminophen (TYLENOL EXTRA STRENGTH) 500 mg tablet Take 2 tablets by mouth three times daily as needed for pain. aspirin, enteric coated (ECOTRIN LOW STRENGTH) 81 mg EC tablet Take 1 tablet by mouth once daily. albuterol HFA (PROVENTIL HFA, VENTOLIN HFA) 90 mcg/actuation inhaler INHALE 2 PUFFS INSTRUCTED EVERY 4 HOURS NEEDED FOR WHEEZING/SHORTNESS OF BREATH. predniSONE (DELTASONE) 10 mg tablet Take 4 tabs daily for 3 days, then 2 tabs daily for 3 days, then 1 tab daily for 3 days with food. ondansetron orally disintegrating (ZOFRAN ODT) 4 mg disintegrating tablet Take 1 tablet by mouth every 4 hours as needed for Nausea/Vomiting. (Patient not taking: Reported on 07/17/2021 ) tamsulosin ER (FLOMAX) 0.4 mg Take 1 capsule by mouth daily at bedtime. (Patient not taking: Reported on 07/17/2021 ) naproxen (NAPROSYN) 500 mg tablet Take 1 tablet by mouth twice daily as needed (PAIN). TAKE WITH FOOD (Patient not taking: Reported on 07/17/2021 ) No current facility-administered medications on file prior to visit. Social History Social History Tobacco Use Smoking status: Never Smokeless tobacco: Never Substance Use Topics Alcohol use: No Drug use: No EXAM: BP 130/78 Pulse 74 Resp 18 Wt 122.5 kg (270 lb) BMI 38.74 kg/m General Appearance: Well appearing, alert, in no acute distress, well-hydrated, well nourished. and Overweight. Lungs: Lungs clear to auscultation. No wheezing, rhonchi, rales.. Heart: RRR without murmur, gallop, or rubs. No ectopy. Extremities: left leg; no swelling, no redness, no pain on palpation. Health Maintenance List HEPATITIS C SCREENING Never done DTAP,TDAP,TD(1 - Tdap) Never done LIPID SCREEN Never done SHINGRIX VACCINE(1 of 2) Never done PROSTATE CANCER SCREENING DISCUSSION Never done COLORECTAL CANCER SCREENING due on 01/07/2018 PNEUMOCOCCAL: 65+(1 - PCV) Never done COVID-19 VACCINE(3 - Booster for Moderna series) due on 11/29/2020 ADVANCE DIRECTIVE DISCUSSION Never done DEPRESSION ASSESSMENT Never done DIABETES SCREEN due on 01/23/2023 INFLUENZA(Season Ended) due on 03/08/2023 Data reviewed None ASSESSMENT/PLAN: 1. Acute deep vein thrombosis (DVT) of tibial vein of left lower extremity (HCC) - ICD9: 453.42, ICD10: I82.442 Eliquis treatment completed No further treatment or testing needed Notify office if any redness or swelling returns Follow up as needed. I agree with the Chief Complaint, ROS, and Past Histories independently gathered by the clinical academic support coordinator and the remaining scribed note accurately describes my personal service to the patient. Medical Decision Making: Problems: Low: Stable chronic illness Risk: Moderate: Drug management Medical Decision Making Level: 3 - Low Mendy Rosenthal MD The documentation for this note was completed by Nicole Romero Ma acting as scribe for Mendy Rosenthal MD. December 21, 2022 9:30 AM. Nicole Romero Ma documented in this encounter [facility] 10-30-2022 Note Patient Outreach (NE TNAV) GLENNA ZAMORA ([id number]) 1955 M Date Time Provider Department 10/30/22 KASSIE STANTON During your visit today, we recorded the following information about you: MT Rodrigez 10/30/2022 3:28 PM Signed POPULATION HEALTH NAVIGATION OUTREACH Action/FYI Pt due for: Colonoscopy AD Spoke to pt who declined colonoscopy. AD sent through [employer]. Patient Identified by Name and : YES, via phone Outreach Outcome/Action Spoke to patient / parent / legal guardian: Patient declined [employer] message sent Advance Directives sent Did you use a PCP flex slot to schedule this appointment? N/A Reason for Outreach Care Gap or Scheduling/Wellness visits Payer: Payor: Business [employer] via [place] AND [employer] / Plan: [employer] HMO / Product Type: HMO / Care Gap Reviewed:: Colorectal Cancer Screening Reminder: Reminder note to check Health Maintenance for items below Health Maintenance items due: HEPATITIS C SCREENING Never done DTAP,TDAP,TD(1 - Tdap) Never done LIPID SCREEN Never done SHINGRIX VACCINE(1 of 2) Never done PROSTATE CANCER SCREENING DISCUSSION Never done COLORECTAL CANCER SCREENING due on 01/07/2018 PNEUMOCOCCAL: 65+(1 - PCV) Never done COVID-19 VACCINE(3 - Booster for Moderna series) due on 11/29/2020 ADVANCE DIRECTIVE DISCUSSION Never done DEPRESSION ASSESSMENT Never done Navigation Signature: MT Rodrigez October 30, 2022 11:17 AM Allergies As of Date: 10/30/2022 (No Known Allergies) Date Reviewed: 09/20/2022 Reviewed by: Nicole Romero Ma - Fully Assessed Reason for Visit: Population Health Navigation Outreach [[id number]] Cmt: [place] [facility] Prescriptions as of 11/02/2022 - acetaminophen (TYLENOL EXTRA STRENGTH) 500 mg tablet Take 2 tablets by mouth three times daily as needed for pain. - aspirin, enteric coated (ECOTRIN LOW STRENGTH) 81 mg EC tablet Take 1 tablet by mouth once daily. - apixaban (ELIQUIS) 5 mg tab(s) Take 1 tablet by mouth twice daily. - albuterol HFA (PROVENTIL HFA, VENTOLIN HFA) 90 mcg/actuation inhaler INHALE 2 PUFFS INSTRUCTED EVERY 4 HOURS NEEDED FOR WHEEZING/SHORTNESS OF BREATH. - predniSONE (DELTASONE) 10 mg tablet Take 4 tabs daily for 3 days, then 2 tabs daily for 3 days, then 1 tab daily for 3 days with food. - ondansetron orally disintegrating (ZOFRAN ODT) 4 mg disintegrating tablet Take 1 tablet by mouth every 4 hours as needed for Nausea/Vomiting. - tamsulosin ER (FLOMAX) 0.4 mg Take 1 capsule by mouth daily at bedtime. - naproxen (NAPROSYN) 500 mg tablet Take 1 tablet by mouth twice daily as needed (PAIN). TAKE WITH FOOD Problem List As Of Date 10/30/2022 Noted Resolved DIVERTICULITIS COLON - NO HEMORRHAGE [K57.32] 01/08/2008 Encounter Status:Closed by KASSIE STANTON on 10/30/22 [facility] 10-30-2022 Note HNO ID: [id number] Author: MT Rodrigez Service: ? Author Type: ? Type: Progress Notes Filed: 10/30/2022 3:28 PM Note Text: POPULATION HEALTH NAVIGATION OUTREACH Action/FYI Pt due for: Colonoscopy AD Spoke to pt who declined colonoscopy. AD sent through [employer]. Patient Identified by Name and : YES, via phone Outreach Outcome/Action Spoke to patient / parent / legal guardian: Patient declined [employer] message sent Advance Directives sent Did you use a PCP flex slot to schedule this appointment? N/A Reason for Outreach Care Gap or Scheduling/Wellness visits Payer: Payor: BHAVNA [employer] [facility] / Plan: [employer] HMO / Product Type: HMO / Care Gap Reviewed:: Colorectal Cancer Screening Reminder: Reminder note to check Health Maintenance for items below Health Maintenance items due: HEPATITIS C SCREENING Never done DTAP,TDAP,TD(1 - Tdap) Never done LIPID SCREEN Never done SHINGRIX VACCINE(1 of 2) Never done PROSTATE CANCER SCREENING DISCUSSION Never done COLORECTAL CANCER SCREENING due on 01/07/2018 PNEUMOCOCCAL: 65+(1 - PCV) Never done COVID-19 VACCINE(3 - Booster for Moderna series) due on 11/29/2020 ADVANCE DIRECTIVE DISCUSSION Never done DEPRESSION ASSESSMENT Never done Navigation Signature: MT Rodrigez October 30, 2022 11:17 AM [facility] 10-30-2022 History of Presen t illness Narrative POPULATION HEALTH NAVIGATION OUTREACH Action/FYI Pt due for: Colonoscopy AD Spoke to pt who declined colonoscopy. AD sent through [employer]. Patient Identified by Name and : YES, via phone Outreach Outcome/Action Spoke to patient / parent / legal guardian: Patient declined [employer] message sent Advance Directives sent Did you use a PCP flex slot to schedule this appointment? N/A Reason for Outreach Care Gap or Scheduling/Wellness visits Payer: Payor: BHAVNA [employer] / Plan: [employer] HMO / Product Type: HMO / Care Gap Reviewed:: Colorectal Cancer Screening Reminder: Reminder note to check Health Maintenance for items below Health Maintenance items due: HEPATITIS C SCREENING Never done DTAP,TDAP,TD(1 - Tdap) Never done LIPID SCREEN Never done SHINGRIX VACCINE(1 of 2) Never done PROSTATE CANCER SCREENING DISCUSSION Never done COLORECTAL CANCER SCREENING due on 01/07/2018 PNEUMOCOCCAL: 65+(1 - PCV) Never done COVID-19 VACCINE(3 - Booster for Moderna series) due on 11/29/2020 ADVANCE DIRECTIVE DISCUSSION Never done DEPRESSION ASSESSMENT Never done Navigation Signature: MT Rodrigez October 30, 2022 11:17 AM documented in this encounter [facility] 09-20-2022 Note HNO ID: [id number] Author: Mendy Rosenthal MD Service: ? Author Type: Physician Type: Progress Notes Filed: 09/20/2022 3:41 PM Note Text: Chief Complaint Patient presents with: Follow Up: 1 week f/u DVT HPI Glenna Zamora is a 67 year old male who presents here today for 1 week f/u. Following up on recent dx of DVT. Started on Eliquis 5 mg BID last week. US was ordered by Ortho due to pt c/o leg swelling, US done at [facility]; DVT in left peroneal tibial trunk. S/P left TKR by Dr Brandi Adrian 6-7 weeks ago. Has been having left hip and thigh pain since having the US done. He has be able to do his PT ok, able to bear weight on the leg, using a cane for support. Denies any pain from the blood clot. Tolerating Eliquis without problems. Knee remains swollen, slightly wam. No fever. Has appt with Dr Adrian tomorrow. Past medical history, appointments, medications, allergies reviewed. Previous Medical History PAST MEDICAL HISTORY Diagnosis Date Diverticulitis of colon (without mention of hemorrhage)(562.11) Previous Surgical History PAST SURGICAL HISTORY Procedure Laterality Date ADENOIDECTOMY PRIMARY Adenoidectomy COLONOSCOPY FLX DX W/COLLJ SPEC WHEN PFRMD 01/08/08 Sigmoid diverticulitis TONSILLECTOMY PRIMARY/SECONDARY Tonsillectomy Family History FAMILY HISTORY Problem Relation Age of Onset Diabetes Mother Cancer Mother 80 uterine Thyroid Mother Hyperlipidemia Mother Diabetes Father Ischemic Heart Disease Father 80 cardiac arrhythmia Hypertension Father Hyperlipidemia Father Patient Allergies ALLERGIES No Known Allergies Current Medications Current Outpatient Medications on File Prior to Visit Medication Sig apixaban (ELIQUIS DVT-PE TREAT 30D START) 5 mg (74 tabs) Take 2 tablets (10 mg) by mouth twice daily for 7 days. Then take 1 tablet (5 mg) by mouth twice daily for 23 days [START ON 10/13/2022] apixaban (ELIQUIS) 5 mg tab(s) Take 1 tablet by mouth twice daily. albuterol HFA (PROVENTIL HFA, VENTOLIN HFA) 90 mcg/actuation inhaler INHALE 2 PUFFS INSTRUCTED EVERY 4 HOURS NEEDED FOR WHEEZING/SHORTNESS OF BREATH. predniSONE (DELTASONE) 10 mg tablet Take 4 tabs daily for 3 days, then 2 tabs daily for 3 days, then 1 tab daily for 3 days with food. ondansetron orally disintegrating (ZOFRAN ODT) 4 mg disintegrating tablet Take 1 tablet by mouth every 4 hours as needed for Nausea/Vomiting. (Patient not taking: Reported on 07/17/2021 ) tamsulosin ER (FLOMAX) 0.4 mg Take 1 capsule by mouth daily at bedtime. (Patient not taking: Reported on 07/17/2021 ) naproxen (NAPROSYN) 500 mg tablet Take 1 tablet by mouth twice daily as needed (PAIN). TAKE WITH FOOD (Patient not taking: Reported on 07/17/2021 ) No current facility-administered medications on file prior to visit. Social History Social History Tobacco Use Smoking status: Never Smokeless tobacco: Never Substance Use Topics Alcohol use: No Drug use: No EXAM: BP 130/84 Pulse 78 Resp 18 Wt 119.7 kg (264 lb) BMI 37.88 kg/m? General Appearance: Well appearing, alert, in no acute distress, well-hydrated, well nourished.. Left leg: diffuse swelling around knee, no tenderness posteriorly. Health Maintenance List HEPATITIS C SCREENING Never done DTAP,TDAP,TD(1 - Tdap) Never done LIPID SCREEN Never done SHINGRIX VACCINE(1 of 2) Never done PROSTATE CANCER SCREENING DISCUSSION Never done COLORECTAL CANCER SCREENING due on 01/07/2018 PNEUMOCOCCAL: 65+(1 - PCV) Never done COVID-19 VACCINE(3 - Booster for Moderna series) due on 11/29/2020 INFLUENZA(1) due on 03/08/2022 ADVANCE DIRECTIVE DISCUSSION Never done DEPRESSION ASSESSMENT Never done DIABETES SCREEN due on 01/23/2023 Data reviewed none ASSESSMENT/PLAN: 1. Acute deep vein thrombosis (DVT) of tibial vein of left lower extremity (HCC) - ICD9: 453.42, ICD10: I82.442 Plan three months of Eliquis - APIXABAN 5 MG TABLET Follow with Ortho for swelling of knee Follow up in 3 months I agree with the Chief Complaint, ROS, and Past Histories independently gathered by the clinical academic support coordinator and the remaining scribed note accurately describes my personal service to the patient. Medical Decision Making: Problems: Low: Acute, uncomplicated illness or injury Data: Unique test result(s) reviewed: 1 Risk: Moderate: Drug management Medical Decision Making Level: 3 - Low Mendy Rosenthal MD The documentation for this note was completed by Nicole Romero Ma acting as scribe for Mendy Rosenthal MD. September 20, 2022 3:11 PM. Nicole Romero Ma [facility] 09-20-2022 History of Presen t illness Narrative Chief Complaint Patient presents with: Follow Up: 1 week f/u DVT HPI Glenna Zamora is a 67 year old male who presents here today for 1 week f/u. Following up on recent dx of DVT. Started on Eliquis 5 mg BID last week. US was ordered by Ortho due to pt c/o leg swelling, US done at [facility]; DVT in left peroneal tibial trunk. S/P left TKR by Dr Brandi Adrian 6-7 weeks ago. Has been having left hip and thigh pain since having the US done. He has be able to do his PT ok, able to bear weight on the leg, using a cane for support. Denies any pain from the blood clot. Tolerating Eliquis without problems. Knee remains swollen, slightly wam. No fever. Has appt with Dr Adrian tomorrow. Past medical history, appointments, medications, allergies reviewed. Previous Medical History PAST MEDICAL HISTORY Diagnosis Date Diverticulitis of colon (without mention of hemorrhage)(562.11) Previous Surgical History PAST SURGICAL HISTORY Procedure Laterality Date ADENOIDECTOMY PRIMARY <AGE 12 Adenoidectomy COLONOSCOPY FLX DX W/COLLJ SPEC WHEN PFRMD 01/08/08 Sigmoid diverticulitis TONSILLECTOMY PRIMARY/SECONDARY <AGE 11 Tonsillectomy Family History FAMILY HISTORY Problem Relation Age of Onset Diabetes Mother Cancer Mother 80 uterine Thyroid Mother Hyperlipidemia Mother Diabetes Father Ischemic Heart Disease Father 80 cardiac arrhythmia Hypertension Father Hyperlipidemia Father Patient Allergies ALLERGIES No Known Allergies Current Medications Current Outpatient Medications on File Prior to Visit Medication Sig apixaban (ELIQUIS DVT-PE TREAT 30D START) 5 mg (74 tabs) Take 2 tablets (10 mg) by mouth twice daily for 7 days. Then take 1 tablet (5 mg) by mouth twice daily for 23 days [START ON 10/13/2022] apixaban (ELIQUIS) 5 mg tab(s) Take 1 tablet by mouth twice daily. albuterol HFA (PROVENTIL HFA, VENTOLIN HFA) 90 mcg/actuation inhaler INHALE 2 PUFFS INSTRUCTED EVERY 4 HOURS NEEDED FOR WHEEZING/SHORTNESS OF BREATH. predniSONE (DELTASONE) 10 mg tablet Take 4 tabs daily for 3 days, then 2 tabs daily for 3 days, then 1 tab daily for 3 days with food. ondansetron orally disintegrating (ZOFRAN ODT) 4 mg disintegrating tablet Take 1 tablet by mouth every 4 hours as needed for Nausea/Vomiting. (Patient not taking: Reported on 07/17/2021 ) tamsulosin ER (FLOMAX) 0.4 mg Take 1 capsule by mouth daily at bedtime. (Patient not taking: Reported on 07/17/2021 ) naproxen (NAPROSYN) 500 mg tablet Take 1 tablet by mouth twice daily as needed (PAIN). TAKE WITH FOOD (Patient not taking: Reported on 07/17/2021 ) No current facility-administered medications on file prior to visit. Social History Social History Tobacco Use Smoking status: Never Smokeless tobacco: Never Substance Use Topics Alcohol use: No Drug use: No EXAM: BP 130/84 Pulse 78 Resp 18 Wt 119.7 kg (264 lb) BMI 37.88 kg/m General Appearance: Well appearing, alert, in no acute distress, well-hydrated, well nourished.. Left leg: diffuse swelling around knee, no tenderness posteriorly. Health Maintenance List HEPATITIS C SCREENING Never done DTAP,TDAP,TD(1 - Tdap) Never done LIPID SCREEN Never done SHINGRIX VACCINE(1 of 2) Never done PROSTATE CANCER SCREENING DISCUSSION Never done COLORECTAL CANCER SCREENING due on 01/07/2018 PNEUMOCOCCAL: 65+(1 - PCV) Never done COVID-19 VACCINE(3 - Booster for Moderna series) due on 11/29/2020 INFLUENZA(1) due on 03/08/2022 ADVANCE DIRECTIVE DISCUSSION Never done DEPRESSION ASSESSMENT Never done DIABETES SCREEN due on 01/23/2023 Data reviewed none ASSESSMENT/PLAN: 1. Acute deep vein thrombosis (DVT) of tibial vein of left lower extremity (HCC) - ICD9: 453.42, ICD10: I82.442 Plan three months of Eliquis - APIXABAN 5 MG TABLET Follow with Ortho for swelling of knee Follow up in 3 months I agree with the Chief Complaint, ROS, and Past Histories independently gathered by the clinical academic support coordinator and the remaining scribed note accurately describes my personal service to the patient. Medical Decision Making: Problems: Low: Acute, uncomplicated illness or injury Data: Unique test result(s) reviewed: 1 Risk: Moderate: Drug management Medical Decision Making Level: 3 - Low Mendy Rosenthal MD The documentation for this note was completed by Nicole Romero Ma acting as scribe for Mendy Rosenthal MD. September 20, 2022 3:11 PM. Nicole Romero Ma documented in this encounter [facility] 09-13-2022 Miscellaneous Notes Formattin g of this note might be different from the original. Pt Cristal notified and voiced understanding. Pt scheduled for 09/20/22 at 3:20 PM in office. Nicole Romero Ma OK to start Eliquis as ordered He should hold Naprosyn while taking Eliquis, and just use Tylenol for pain if needed Follow up in the next week Mendy Rosenthal MD Pt Cristal stopped into office, she states that Ortho referred treatment to PCP. She states pt does not take any prescription medication. Is taking Naproxen 1 pill BID, 81 mg Aspirin per day, and Tylenol. No allergies. advised we would send in Eliquis to [facility] [place] and only call if anything to add or change otherwise can start the Eliquis. If any changes or questions, can call Cristal on her cell phone at [phone]. Nicole Romero Ma Spoke with Cielo with [facility] who checked with [facility], they stated pt was no longer there was sent home. Message left for pt to call back. Nicole Romero Ma I assume the Doppler was order by Ortho? And I assume he is having some symptoms - pain, swelling, etc? May notify patient that the Doppler does show a DVT; if Ortho wants me to treat I will order Eliquis. Mendy Rosenthal MD [facility] called to let provider know the venous duplex or left leg was + for a DVT of the tibial perineal trunk. documented in this encounter [facility] 08-21-2022 History of Presen t illness Narrative POPULATION HEALTH NAVIGATION OUTREACH Action/FYI Due for: PCP Wellness/verify Colonoscopy Flu shot Left VM; MyChart message sent Patient Identified by Name and : NO Outreach Outcome/Action Unable to reach patient: Left message MyChart message sent Did you use a PCP flex slot to schedule this appointment? N/A Reason for Outreach Care Gap or Scheduling/Wellness visits Payer: Payor: [employer] via [place] AND [employer] / Plan: [employer] HMO / Product Type: HMO / Care Gap Reviewed:: Annual Wellness visit Colorectal Cancer Screening Flu Vaccine Reminder: Reminder note to check Health Maintenance for items below Health Maintenance items due: HEPATITIS C SCREENING Never done DTAP,TDAP,TD(1 - Tdap) Never done LIPID SCREEN Never done SHINGRIX VACCINE(1 of 2) Never done PROSTATE CANCER SCREENING DISCUSSION Never done COLORECTAL CANCER SCREENING due on 01/07/2018 PNEUMOCOCCAL: 65+(1 - PCV) Never done COVID-19 VACCINE(3 - Booster for Moderna series) due on 11/29/2020 INFLUENZA(1) due on 03/08/2022 ADVANCE DIRECTIVE DISCUSSION Never done DEPRESSION ASSESSMENT Never done Navigation Signature: Jennifer Cerrato MA August 21, 2022 9:38 AM documented in this encounter [facility] Diagnosis Acute deep vein thrombosis (DVT) of tibial vein of left lower extremity (HCC)- Primary [facility] Diagnosis Pre-op examination- Primary Preoperative examination, unspecified Chronic left hip pain Pain in joint, pelvic region and thigh documented in this encounter [facility] Summary Purpose Family History No Family History Records FoundNo Family History Records FoundNo Family History Records Found Advance Directives No Advanced Directives Records FoundNo Advanced Directives Records FoundNo Advanced Directives Records Found Additional Source Comments (unrecognized sect ion and content) No Status Records FoundNo Status Records FoundNo Status Records Found INFORMATION SOURCE (unrecogn ized section and content) DATE CREATED AUTHOR AUTHOR'S ORGANIZ ATION 08/15/2023 [facility] DATE CREATED AUTHOR AUTHOR'S ORGANIZ ATION 08/25/2023 [facility] Source Comments (unrecognize d section and content) In the event this informatio n is protected by the Federal Confidentiality of Alcohol and Drug Abuse Patient Records regulations: The Federal rules restrict any use of the information to criminally investigate or prosecute any alcohol or drug abuse patient.[facility] the event this information is protected by the Federal Confidentiality of Alcohol and Drug Abuse Patient Records regulations: The Federal rules restrict any use of the information to criminally investigate or prosecute any alcohol or drug abuse patient.[facility] the event this information is protected by the Federal Confidentiality of Alcohol and Drug Abuse Patient Records regulations: The Federal rules restrict any use of the information to criminally investigate or prosecute any alcohol or drug abuse patient.[facility] the event this information is protected by the Federal Confidentiality of Alcohol and Drug Abuse Patient Records regulations: The Federal rules restrict any use of the information to criminally investigate or prosecute any alcohol or drug abuse patient.[facility] the event this information is protected by the Federal Confidentiality of Alcohol and Drug Abuse Patient Records regulations: The Federal rules restrict any use of the information to criminally investigate or prosecute any alcohol or drug abuse patient.[facility] the event this information is protected by the Federal Confidentiality of Alcohol and Drug Abuse Patient Records regulations: The Federal rules restrict any use of the information to criminally investigate or prosecute any alcohol or drug abuse patient.[facility] the event this information is protected by the Federal Confidentiality of Alcohol and Drug Abuse Patient Records regulations: The Federal rules restrict any use of the information to criminally investigate or prosecute any alcohol or drug abuse patient.[facility] Reason for Visit (unrecogniz ed section and content) Reason Comments Stat Lab Reason Comments Follow Up 1 week f/u DVT Reason Onset Date Comments Population Health Navigation Outreach 10/30/2022 [place] care gaps Reason Comments F/U 3 Month Reason Comments Pre-Op Exam Reason Comments [facility] Ortho Care Teams (unrecognized sec tion and content) Deli Clerk Relationship Specialty Start Date End Date Mendy Rosenthal MD [address] [place] [address] PCP - General Family Medicine 08/27/18 David Castro [address] [place] [id number] Optometry 08/27/18 Deli Clerk Relationship Specialty Start Date End Date Mendy Rosenthal MD [address] [place] [address] PCP - General Family Medicine 08/27/18 David Castro [address] [place] [address] [id number] Optometry 08/27/18 Deli Clerk Relationship Specialty Start Date End Date Mendy Rosenthal MD [address] [place] [address] PCP - General Family Medicine 08/27/18 David Castro [address] [place] [address] [id number] Optometry 08/27/18 Deli Clerk Relationship Specialty Start Date End Date Mendy Rosenthal MD [address] [place], [place] [id number] PCP - General Family Medicine 08/27/18 David Castro, OD [address] [place] [id number] Optometry 08/27/18 Deli Clerk Relationship Specialty Start Date End Date Mendy Rosenthal MD [address] [place], [place] [id number] PCP - General Family Medicine 08/27/18 David Castro, OD [address] [place] [id number] Optometry 08/27/18 FOR RECORDS PERTAINING TO PATIENTS WHO ARE OR HAVE BEEN ENROLLED IN A CHEMICAL DEPENDENCY/SUBSTANCEABUSE PROGRAM, SOME INFORMATION MAY BE OMITTED. This clinical summary was aggregated from multiple sources. Caution should be exercised in using it in the provision of clinical care. This summary normalizes information from multiple sources, and as a consequence, information in this document may materially change the coding, format and clinical context of patient data. In addition, data may be omitted in some cases. CLINICAL DECISIONS SHOULD BE BASED ON THE PRIMARY CLINICAL RECORDS. [facility] [employer] [facility]. provides no warranty or guarantee of the accuracy or completeness of information in this document.
== END | disposition home or self-care (01) ==
LOC: LABSPEC 15:58
PROVIDERS: PCP Family Medicine; Referring Provider Orthopaedic Surgery; Visit Provider Orthopaedic Surgery
DX: M16.12 Unilateral primary osteoarthritis, left hip (principal)
CPT/HCPCS: 88305; 88311

== ENCOUNTER 2023-09-24 06:34 | Emergency (ER) | payer MEDICARE, SELFPAY ==
[2023-09-24] VITALS (9 sets, daily range): BP systolic 130–152; BP diastolic 76–92; PULSE 67–106; RESP 14–20; TEMP 36.7–37.1; O2SAT 88–99; BMI 37.3
--- NOTE | 2023-09-24 07:07 | EDS_ITS ---
HPI History of Present Illness Chief Complaint: Flank Pain Informant: patient Onset/Context/Timing Onset: Today Context: Sudden Onset Timing: Continuous Quality: Sharp, dull Location: Left flank Worsened by: Nothing Relieved by: Oxycodone, Tylenol Narrative Narrative: Patient presents with left flank pain that began this morning. Patient states it began rather suddenly. Patient states it has been constant. Patient describes the pain as sharp. Patient states he took some oxycodone and Tylenol. Patient states the pain is now dull. Patient states nothing makes it worse. Patient states he had a left total hip replacement 1 week ago. Patient was started on Xarelto after his hip replacement for prior DVT when he had his total knee replaced. Patient denies any nausea or vomiting. Patient denies any dysuria or hematuria. Patient denies any fevers or chills. Patient denies any chest pain or shortness of breath. [facility] Medical History (Updated 09/24/23 @ 09:[address] Louie Boggs DO) DVT (deep venous thrombosis) Home Medications oxycodone 5 mg tablet 5 mg PO Q8H PRN pain 3 days #12 tabs 09/24/23 [Rx Last Taken Unknown] Allergy/AdvReac Type Severity Reaction Status Date / Time No Known Allergies Allergy Verified 08/09/18 15:42 Surgical History (Updated 09/24/23 @ 09:[address] 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) Social History Smoking Status: Never smoker ROS ROS ED Constitutional Constitutional ED: Denies chills or fever(s) Eyes Eyes: Denies blurry vision or change in vision ENT ENT ED: Denies rhinorrhea or sore throat Cardiovascular Cardiovascular: Denies chest pain or palpitations Respiratory/Chest Respiratory/Chest: Denies cough or dyspnea Gastrointestinal Gastrointestinal: Denies nausea or vomiting Genitourinary Genitourinary ED: Denies dysuria or hematuria Musculoskeletal Musculoskeletal: Reports back pain; Denies neck pain Integumentary Denies abscess or rash Neurologic Neurologic: Denies headache(s) or weakness Allergic/Immunologic Allergic/Immunologic ED: Denies mouth swelling or urticaria EXAM Physical Exam Const Vital Signs: 09/24/23 06:34 09/24/23 07:05 09/24/23 07:45 Temperature 98.1 F Temperature Source Temporal Pulse Rate 106 H Respiratory Rate 20 H Blood Pressure 145/84 H 147/77 H Blood Pressure Mean 104 96 Pulse Ox 96 95 Oxygen Delivery Method Room Air 09/24/23 07:58 09/24/23 08:00 09/24/23 08:10 Temperature Temperature Source Pulse Rate Respiratory Rate Blood Pressure 152/76 H 152/79 H Blood Pressure Mean 99 103 Pulse Ox 93 88 93 Oxygen Delivery Method 09/24/23 08:20 09/24/23 08:30 Temperature Temperature Source Pulse Rate Respiratory Rate Blood Pressure Blood Pressure Mean Pulse Ox 95 88 Oxygen Delivery Method Positive well nourished, well developed and obese General Appearance ED: well developed and NAD Nutritional Appearance: obese HEENT Reports moist mucous membranes Neck supple and no JVD Resp normal respiratory effort and clear to auscultation bilaterally Cardio regular rate and regular rhythm GI non-tender and non-distended Palpation: soft Back/Spine General Back: CVA tenderness left (Mild) Neuro oriented x3, CN's II-XII intact bilaterally and no sensory deficits noted Sensorium / Orientation: alert Motor Exam: strength 5/5 throughout Psych mental status grossly normal MDM MDM MDM Narrative Medical decision making narrative: Differential diagnosis includes ureteral calculus, pyelonephritis, retroperitoneal hematoma, diverticulitis, and musculoskeletal back pain. CBC will be obtained to assess for leukocytosis and anemia. Basic metabolic profile will be obtained to assess for electrolyte abnormality and renal function. PT with INR and PTT will be obtained to assess for coagulopathy. CT scan of the abdomen pelvis will be obtained to assess for ureteral calculus and retroperitoneal hematoma. Lab Data Attestation: I reviewed the patient's lab results. Lab results narrative: CBC was reviewed. There is a mild leukocytosis of 15.1. There is a mild anemia with a hemoglobin of 12.4 hematocrit 38.4. Basic metabolic profile was reviewed and was essentially within normal limits. PT with INR and PTT were reviewed and were within normal limits. Urinalysis was reviewed. There is no evidence of urinary tract infection or hematuria. Labs: Laboratory Results - last 24 hr 09/24/23 09/24/23 09/24/23 07:25 07:25 07:35 WBC Cancelled Corrected WBC Cancelled RBC Cancelled Hgb Cancelled Hct Cancelled MCV Cancelled MCH Cancelled MCHC Cancelled RDW Std Deviation Cancelled RDW Coeff of Zenia Cancelled Plt Count Cancelled MPV Cancelled Immature Gran % (Auto) Cancelled Neut % (Auto) Cancelled Lymph % (Auto) Cancelled Glenn % (Auto) Cancelled Eos % (Auto) Cancelled Baso % (Auto) Cancelled Absolute Neuts (auto) Cancelled Absolute Lymphs (auto) Cancelled Total Counted Cancelled Neutrophils % (Manual) Cancelled Band Neutrophils % Cancelled Lymphocytes % (Manual) Cancelled Monocytes % (Manual) Cancelled Eosinophils % (Manual) Cancelled Basophils % (Manual) Cancelled Metamyelocytes % Cancelled Myelocytes % Cancelled Promyelocytes % Cancelled Blast Cells % Cancelled Plasma Cell % (Manual) Cancelled Other Cells % Cancelled Nucleated RBC % Cancelled Nucleated RBCs/100 WBC Cancelled Differential Comment Cancelled Diff Path Review Cancelled Hypersegmented Neuts Cancelled Atypical Lymphocytes Cancelled Reactive Lymphocytes Cancelled Smudge Cells Cancelled Toxic Granulation Cancelled Toxic Vacuolation Cancelled Dohle Bodies Cancelled Matthew Rods Cancelled Platelet Estimate Cancelled Plt Morphology Comment Cancelled RBC Morphology Cancelled Cancelled Polychromasia Cancelled Hypochromasia Cancelled Basophilic Stippling Cancelled Anisocytosis Cancelled Microcytosis Cancelled Macrocytosis Cancelled Spherocytes Cancelled Sickle Cells Cancelled Target Cells Cancelled Tear Drop Cells Cancelled Ovalocytes Cancelled Stomatocytes Cancelled [place] Bodies Cancelled [place] Cells Cancelled Bite Cells Cancelled Crenated Cell Cancelled Acanthocytes (Spur) Cancelled Rouleaux Cancelled Schistocytes Cancelled Sodium 138 Potassium 3.5 Chloride 102 Carbon Dioxide 30.0 Anion Gap 6 BUN 14 Creatinine 0.82 Estim Creat Clear Calc 109.40 Est GFR (MDRD) Af Amer 119 Est GFR (MDRD) Non-Af 99 BUN/Creatinine Ratio 17.0 Glucose 141 H Calcium 9.1 Urine Color Yellow Urine Clarity Clear Urine pH 8.0 Ur Specific [place] 1.010 Urine Protein Negative Urine Glucose (UA) Normal Urine Ketones Negative Urine Occult Blood Negative Urine Nitrite Negative Urine Bilirubin Negative Urine Urobilinogen 1 H Ur Leukocyte Esterase 25 H Urine RBC 0 SEEN Urine WBC 0 SEEN Ur Squamous Epith Cells 0 SEEN Urine Bacteria 0 SEEN Urine Mucus 0 SEEN 09/24/23 07:58 WBC 15.1 H Corrected WBC RBC 4.55 L Hgb 12.4 L Hct 38.4 L MCV 84.4 MCH 27.3 MCHC 32.3 RDW Std Deviation 41.6 RDW Coeff of Zenia 13.9 Plt Count 364 MPV 9.6 Immature Gran % (Auto) 1.900 H Neut % (Auto) 71.9 H Lymph % (Auto) 14.5 L Glenn % (Auto) 8.9 Eos % (Auto) 2.1 Baso % (Auto) 0.7 Absolute Neuts (auto) 10.9 H Absolute Lymphs (auto) 2.19 Total Counted Neutrophils % (Manual) Band Neutrophils % Lymphocytes % (Manual) Monocytes % (Manual) Eosinophils % (Manual) Basophils % (Manual) Metamyelocytes % Myelocytes % Promyelocytes % Blast Cells % Plasma Cell % (Manual) Other Cells % Nucleated RBC % 0 Nucleated RBCs/100 WBC Differential Comment Diff Path Review Hypersegmented Neuts Atypical Lymphocytes Reactive Lymphocytes Smudge Cells Toxic Granulation Toxic Vacuolation Dohle Bodies Matthew Rods Platelet Estimate Plt Morphology Comment RBC Morphology Polychromasia Hypochromasia Basophilic Stippling Anisocytosis Microcytosis Macrocytosis Spherocytes Sickle Cells Target Cells Tear Drop Cells Ovalocytes Stomatocytes House-[place] Bodies Mi Cells Bite Cells Crenated Cell Acanthocytes (Spur) Rouleaux Schistocytes Sodium Potassium Chloride Carbon Dioxide Anion Gap BUN Creatinine Estim Creat Clear Calc Est GFR (MDRD) Af Amer Est GFR (MDRD) Non-Af BUN/Creatinine Ratio Glucose Calcium Urine Color Urine Clarity Urine pH Ur Specific [place] Urine Protein Urine Glucose (UA) Urine Ketones Urine Occult Blood Urine Nitrite Urine Bilirubin Urine Urobilinogen Ur Leukocyte Esterase Urine RBC Urine WBC Ur Squamous Epith Cells Urine Bacteria Urine Mucus Radiography Diagnostic Testing: Clinical Impression(s) from Imaging Studies Abdomen/Pelvis CT 09/24/23 07:24 IMPRESSION: 1. Mild to moderate left hydronephrosis possibly due to 3 mm stone in the distal left ureter. 2. Otherwise no significant change since previous examination. Electronically Signed: Armen Yadav MD at 8:27 EDT , CT scan of the abdomen pelvis was obtained. There is mild to moderate left hydronephrosis due to a 3 mm stone in the left distal ureter. There is no evidence of retroperitoneal hematoma. There is no other significant change. This was interpreted by the radiologist and was also dependently reviewed by myself. Treatment and Re-Evaluation :: Patient was given IV fluids, morphine, and Zofran. Patient was advised of his findings. Patient was given a prescription for oxycodone to take as needed for pain. Patient was instructed to follow-up with his primary care physician in 5 to 7 days. Patient was also given a referral for urology. Patient was instructed return if worse in any way. Patient understood and was agreeable with the plan. All questions were answered. Discharge Plan Triage Chief Complaint: Flank Pain ED Provider: Louie Boggs Dx/Rx/DC Orders Clinical Impression: Calculus of distal left ureter, Status post total replacement of left hip Instructions: ED Kidney Stone with Pain Prescriptions: New oxycodone 5 mg tablet 5 mg PO Q8H PRN (Reason: pain) 3 Days Qty: 12 0RF Primary Care Provider: Shane Cartwright Referrals: Edwin Martin MD [Med Staff - Active Staff] - 3-5 Days Shane Cartwright MD [Primary Care Provider] - 3-5 Days Disposition Disposition: Home, Self Care
--- NOTE | 2023-09-24 07:24 | CT_ITS ---
INDICATION: Left flank pain EXAMINATION: CT ABDOMEN AND PELVIS WITHOUT CONTRAST TECHNIQUE: Helically acquired images were obtained of the abdomen and pelvis without oral or IV contrast. A radiation dose optimization technique was used for this scan. IV Contrast dosage and agent: None. Oral contrast: None. RADIATION DOSAGE (If Supplied By Facility): CTDIvol = ( 22.26 ) mGy, DLP = ( 1168.09 ) mGycm COMPARISON: Prior study dated: 08/09/2018 FINDINGS: LOWER CHEST: Lung bases are clear. No cardiomegaly or pericardial effusion. LIVER: Homogeneous. No focal mass is seen without contrast. GALLBLADDER AND BILIARY TREE: No calcified gallstones. No gallbladder distension or wall edema. No intra- or extrahepatic biliary ductal dilation. PANCREAS: No focal cystic or solid mass. SPLEEN: Normal size without focal cystic or solid mass. ADRENAL GLANDS: No nodules. KIDNEYS AND URETERS: Bilateral parapelvic cysts are again seen. Simple cortical cyst in the right kidney unchanged for which no further follow-up exam is needed. Mild to moderate left hydronephrosis difficult to evaluate the presence of parapelvic cysts. Fusion is nondilated. 3 mm calcification left upper pelvis on image 135 series 2 could be due to phleboliths. Ureteral stone cannot be entirely excluded. PERITONEUM: No ascites or free air. No other fluid collection. BOWEL: No evidence of acute appendicitis. Anastomosis sutures in the sigmoid colon are again seen. No definite acute diverticulitis. LYMPH NODES: No enlarged mesenteric or retroperitoneal lymph nodes. VESSELS: Aorta is non-dilated. URINARY BLADDER: The urinary bladder is not distended. REPRODUCTIVE ORGANS: No pelvic masses. ABDOMINAL WALL: No discrete abdominal or pelvic wall hernia. BONES: No lytic or blastic abnormality. Severe narrowing and partial fusion of L5-S1 with grade 1 anterolisthesis of L5 over S1. Bone island in the sacrum unchanged. CT/Abdomen/Pelvis without Cont IMPRESSION: 1. Mild to moderate left hydronephrosis possibly due to 3 mm stone in the distal left ureter. 2. Otherwise no significant change since previous examination. Electronically Signed: Armen Yadav MD at 8:27 EDT ,
[2023-09-24] MEDS: Ondansetron 4 MG/2 ML Vial IV (07:40)
[2023-09-24] MEDS: Morphine 4 MG/ML Syringe IV (07:40)
[2023-09-24] MEDS: 0.9% Normal Saline (1000mL) 1,000 ML 1000 ML IV (07:40)
[2023-09-24 07:43] LABS: Bacteria 0 SEEN /hpf (None Seen); Mucous, Urine 0 SEEN /hpf (<or=2+); Red Blood Cells-Urine 0 SEEN /hpf (0-5); Squamous Epithelial Cells - UA 0 SEEN /hpf (0-5); White Blood Cells 0 SEEN /hpf (0-5)
--- NOTE | 2023-09-24 07:45 | NURSING ---
NEED A NEW PURPLE TOP
[2023-09-24 07:49] LABS: International Normalized Ratio 1.1; Prothrombin Time (Protime)PT. 13.9 SECONDS (11.7-14.9)
[2023-09-24 07:49] LABS: Color, Urine Yellow (Yellow); Glucose, Dipstick Normal (Normal); Ketone-Dipstick Negative (Negative); Leukocyte Esterase-Dipstick 25 /ul (Negative); Nitrite-Dipstick Negative (Negative); Occult Blood-Urine Negative /ul (Negative); Protein-Dipstick Negative (Negative); Urine Bilirubin Dipstick Negative (Negative); Urine Clarity Clear (Clear); Urine Urobilinogen 1 mg/dl (Normal)
[2023-09-24 07:50] LABS: Anion Gap 6 (5-15); BUN 14 mg/dL (7-18); Calcium,Total 9.1 mg/dL (8.5-10.1); Chloride 102 mmol/L (98-107); Creatinine, Serum 0.82 mg/dL (0.70-1.30); EST Glomerular Filtration Rate 99 mL/min (>60); Est Glom Filt Rate - Afr Amer 119 mL/min (>60); Glucose 141 mg/dL (74-106); Potassium 3.5 mmol/L (3.5-5.1); Sodium Level 138 mmol/L (136-145)
[2023-09-24 08:05] LABS: Absolute Lymphocyte Count 2.19 X10^3/uL (0.83-4.51); Absolute Neutrophil Count 10.9 X10^3/uL (2.0-7.7); Basophil% 0.7 % (0-1); Eosinophil# 0.31 X10^3/uL; Eosinophils% 2.1 % (0-5); Hematocrit 38.4 % (40-54); Hemoglobin 12.4 g/dL (13.0-16.5); Lymphocyte # 2.19 X10^3/ul (0.83-4.51); Lymphocyte % 14.5 % (19-41); Mean Corp Hgb Conc 32.3 g/dL (32-36); Mean Corpuscular Hgb 27.3 pg (27.0-32.0); Mean Corpuscular Volume 84.4 fL (80-94); Mean Platelet Vol. 9.6 fl (6.2-12.0); Monocyte# 1.35 X10^3/uL; Monocyte% 8.9 % (0-10); NRBC Flagged by Analyzer 0 % (0-5); Neutrophil # 10.86 X10^3/uL (2.7-7.7); Neutrophil % 71.9 % (47-70); Platelet Count 364 K/mm3 (150-450); RBC Distribution Width CV 13.9 % (11.6-14.6); RBC Distribution Width SD 41.6 fl (35.1-43.9); Red Blood Count 4.55 M/mm3 (4.6-6.2); White Blood Count 15.1 K/mm3 (4.4-11.0)
[2023-09-24 08:48] LABS: Partial Thromboplast Time 23.2 Seconds (24.1-36.2)
== END 2023-09-24 09:29 | disposition home or self-care (01) ==
PROVIDERS: Emergency Provider Emergency Medicine; PCP Family Medicine; Visit Provider Emergency Medicine
DX: N13.2 Hydronephrosis with renal and ureteral calculous obstruction (principal); E66.9 Obesity, unspecified; Z86.718 Personal history of other venous thrombosis and embolism; Z96.642 Presence of left artificial hip joint
CPT/HCPCS: 74176; 80048; 81001; 85025; 85610; 85730; 96374; 96375; 99283; A4216; J2405

== ENCOUNTER 2024-07-04 12:43 | Emergency (ER) | payer MEDICARE, SELFPAY ==
[2024-07-04] VITALS (7 sets, daily range): BP systolic 140–178; BP diastolic 84–102; PULSE 82–97; RESP 13–16; TEMP 35.7; O2SAT 91–95; BMI 38.0
--- NOTE | 2024-07-04 13:09 | CT_ITS ---
INDICATION: vertigo EXAMINATION: CT BRAIN - CT Head or Brain W/O Contrast Injection TECHNIQUE: Multiple axial images were obtained of the head without intravenous contrast. A radiation dose optimization technique was used for this scan. IV Contrast dosage and agent: None. COMPARISON: None FINDINGS: BRAIN PARENCHYMA: No intra- or extra-axial hemorrhage. No evidence of acute infarct. No intracranial mass or mass effect. There is preservation of the nails/white matter interface. Posterior fossa structures are unremarkable. CSF SPACES: Appropriate for age. No hydrocephalus. Basal cisterns are patent. CALVARIUM, SKULL BASE, PARANASAL SINUSES AND MASTOID AIR CELLS: Pansinusitis. No discrete lytic or blastic abnormalities. CT/Brain/Head without Contrast IMPRESSION: No acute intracranial findings. Electronically Signed: Mal Ferris MD at 15:22 EST ,
--- NOTE | 2024-07-04 13:10 | EKG12_ITS ---
Test Reason : DIZZY Blood Pressure : */* mmHG Vent. Rate : 83 BPM Atrial Rate : 83 BPM P-R Int : 276 ms QRS Dur : 96 ms QT Int : 396 ms P-R-T Axes : 57 -12 41 degrees QTcB Int : 465 ms Sinus rhythm with 1st degree A-V block Otherwise normal ECG Confirmed by PEEWEE WORRELL, CESAR ([id number]), editorial project manager CHAZ VASQUEZ ([id number]) on 07/06/2024 8:38:02 AM Referred By: BRITNI Confirmed By: CESAR VIDES MD
--- NOTE | 2024-07-04 13:15 | EDS_ITS ---
HPI History of Present Illness Chief Complaint: Dizziness Informant: patient and parent Narrative Narrative: Patient is a 69-year-old male with no signal past medical history presenting with worsening dizziness. Patient has been congested for the past week. He is reporting sinus pressure. Around 2 AM he woke up feeling dizzy and nauseous. He took Antivert around 10 AM (25 mg) and then Zofran at 8 AM. He redosed his medications around 1130 or noon. Continues to feel off balance to be very dizzy. Came in for further evaluation. Denies any history of vertigo. Denies any ringing of his ears. Denies any head injuries. Has a history of stroke. Is not on any blood thinners. Is otherwise been feeling well. Did have a fever when his cold/congestion for started but that has resolved. No vision changes reported. No other complaints or concerns reported at this time. [facility] Medical History DVT (deep venous thrombosis) Home Medications ?Medication ?Instructions ?Recorded ?Last Taken ?Type aspirin 81 mg chewable tablet 1 tab PO DAILY 07/04/24 Unknown History diazepam 5 mg tablet (Valium) 5 mg PO Q8H PRN vertigo #10 tabs 07/04/24 Unknown Rx meclizine 25 mg tablet 25 mg PO 4X/DAY PRN PRN Dizziness 07/04/24 Unknown Rx #20 tabs ondansetron 4 mg disintegrating 4 mg PO Q8H PRN PRN Nausea #10 tabs 07/04/24 Unknown Rx tablet Allergy/AdvReac Type Severity Reaction Status Date / Time No Known Allergies Allergy Verified 07/04/24 12:43 Surgical History History of resection of large bowel History of total left hip replacement History of total left knee replacement (TKR) Social History Smoking Status: Never smoker ROS ROS ED Constitutional Constitutional ED: Denies chills or fever(s) Eyes Eyes: Denies blurry vision or change in vision ENT ENT ED: Reports ear pain bilateral (Ear congestion-right worse than left), sore throat and other Details: Sinus congestion ; Denies rhinorrhea Cardiovascular Cardiovascular: Denies chest pain Respiratory/Chest Respiratory/Chest: Reports cough; Denies dyspnea Gastrointestinal Gastrointestinal: Reports nausea; Denies abdominal pain or vomiting Musculoskeletal Musculoskeletal: Denies arthralgias or myalgias Integumentary Denies rash Neurologic Neurologic: Denies headache(s), paresthesias or weakness Psychiatric Psychiatric: Denies anxiety Hematologic/Lymphatic Hematologic/Lymphatic: Denies easy bleeding or easy bruising EXAM Physical Exam Const Vital Signs: 07/04/24 12:44 07/04/24 12:46 07/04/24 14:43 Temperature 96.3 F L 96.3 F L Temperature Source Temporal Temporal Pulse Rate 97 85 82 Respiratory Rate 16 13 14 Blood Pressure 140/84 H 178/97 H 156/102 H Blood Pressure Mean 102 124 120 Pulse Ox 94 93 94 Oxygen Delivery Method Room Air Room Air Nasal Cannula Oxygen Flow Rate (L/min) 2 07/04/24 15:35 07/04/24 15:37 07/04/24 15:52 Temperature 96.3 F L Temperature Source Pulse Rate 82 Respiratory Rate 14 Blood Pressure 156/102 H Blood Pressure Mean 120 Pulse Ox 91 95 95 Oxygen Delivery Method Room Air Room Air Oxygen Flow Rate (L/min) Positive well nourished and well developed General Appearance ED: well developed and NAD HEENT Reports moist mucous membranes HEENT Narrative: Mild fullness of the bilateral tympanic membranes with mild cloudiness to the left tympanic membrane. No significant injection or erythema of the TMs appreciated. Normal ear canals. Nasal congestion present. Negative for trauma Eyes PERRL Eyes Narrative: Mild horizontal nystagmus with lateral gaze, does not tolerate range of motion of the head at this time because of symptoms Neck no lymphadenopathy, supple and no JVD Chest Wall inspection of chest normal Resp normal respiratory effort and clear to auscultation bilaterally Auscultation: Negative for rales, rhonchi or wheezes Cardio regular rate and regular rhythm GI normal to inspection, nondistended, normoactive bowel sounds Extremity normal to inspection General Extremety ED: Negative for edema or tenderness General Extremity: Negative for edema Neuro oriented x3, CN's II-XII intact bilaterally and no sensory deficits noted Neuro Narrative: Normal finger-nose, [id number]. No truncal ataxia. Sensorium / Orientation: alert; Negative for orientation impaired Motor Exam: strength 5/5 throughout; Negative for general weakness Psych mental status grossly normal Skin no rashes or lesions noted and no wounds MDM MDM MDM Narrative Medical decision making narrative: Patient's evaluated for new onset of vertiginous symptoms with associated nausea in the setting of a recent cold. Patient appears nontoxic in no acute distress but mildly uncomfortable because of his symptoms. He does not have any focal neurologic deficits. Lower suspicion for central vertigo and suspect this is peripheral vertigo. Given that he is already had Zofran and meclizine will give oral Valium. Discussed with family and will obtain a CT of the brain to ensure there is no space-occupying lesion or acute hemorrhage of the cerebellum. CBC and CMP largely normal. Patient's lipase mildly elevated at 128 however this does not meet criteria for pancreatitis and he is not complain of abdominal pain. High since troponin normal at 7. Low suspicion for referred ACS as the cause of his symptoms. Hemoglobin mildly elevated at 16.6 but this appears to be his baseline. While in the ER patient is resting dissection desaturate. He is placed on supplemental oxygen. Decision made to add on COVID, flu and RSV test. COVID test is positive. This likely cause of his recent cold symptoms. Given his symptoms going on for a week he is not a candidate for antiviral at this time. CT of the brain does not show any acute process. Chest x-rays not show any acute process reviewed by myself as well as radiology. EKG shows normal sinus rhythm with first-degree AV block. Patient is reevaluated. He is feeling much better. Tenisha-Hallpike maneuver performed and is positive on the right. Patient is ambulated with a steady gait. No desaturation/hypoxia. We discharged home with a prescription for further meclizine, Zofran as well as Valium for symptom control. Is given referral to ENT. Given return precautions. Patient and family verbalized agreement understand with this plan. Discharged home in stable improved condition. Lab Data Attestation: I reviewed the patient's lab results. Labs: Laboratory Results - last 24 hr 07/04/24 13:00 WBC 8.3 RBC 6.24 H Hgb 16.6 H Hct 50.8 MCV 81.4 MCH 26.6 L MCHC 32.7 RDW Std Deviation 38.5 RDW Coeff of Zenia 13.1 Plt Count 257 MPV 10.2 Immature Gran % (Auto) 0.600 Neut % (Auto) 65.6 Lymph % (Auto) 26.5 [place] % (Auto) 6.3 Eos % (Auto) 0.5 Baso % (Auto) 0.5 Absolute Neuts (auto) 5.5 Absolute Lymphs (auto) 2.20 Nucleated RBC % 0 Sodium 136 Potassium 3.7 Chloride 98 Carbon Dioxide 31.0 Anion Gap 8 BUN 11 Creatinine 0.92 Estim Creat Clear Calc 97.18 Est GFR (MDRD) Af Amer 105 Est GFR (MDRD) Non-Af 87 BUN/Creatinine Ratio 12.0 Glucose 136 H Calcium 9.0 Total Bilirubin 1.40 H AST 25 ALT 35 Alkaline Phosphatase 51 Troponin I High Sens 7 Total Protein 7.7 Albumin 3.7 Globulin 4.0 Albumin/Globulin Ratio 0.9 Lipase 128 H Radiography Chest X-Ray - ED: 2 View, Read by ED Physician, Read by Radiologist and No Acute Disease Diagnostic Testing: Clinical Impression(s) from Imaging Studies Brain CT 07/04/24 13:09 IMPRESSION: No acute intracranial findings. Electronically Signed: Mal Ferris MD at 15:22 EST , Chest X-Ray 07/04/24 13:30 IMPRESSION: No radiographic evidence of acute cardiopulmonary disease. Electronically Signed: Mal Ferris MD at 15:23 EST , Rhythm Strip Rhythm Strip: Sinus Rhythm Rate: 83 Ectopy: None EKG Initial EKG: Attestation: I personally reviewed and interpreted this EKG as follows: Interpretation: Sinus Rhythm Comments: Normal sinus rhythm at a rate of 83 bpm with first-degree AV block with a GA interval of 276 Normal axis Normal intervals Normal ST segments Discharge Plan Triage Chief Complaint: Dizziness ED Provider: Tawnya Ornelas Dx/Rx/DC Orders Clinical Impression: Benign paroxysmal positional vertigo of right ear, Nausea, COVID-19 Instructions: Coronavirus Disease 2019 (COVID-19): Caring for Yourself or Others, ED BPV Vertigo Prescriptions: New diazepam [Valium] 5 mg tablet 5 mg PO Q8H PRN (Reason: vertigo) Qty: 10 0RF ondansetron 4 mg tablet,disintegrating 4 mg PO Q8H PRN PRN (Reason: Nausea) Qty: 10 0RF meclizine 25 mg tablet 25 mg PO 4X/DAY PRN PRN (Reason: Dizziness) Qty: 20 0RF No Action aspirin 81 mg tablet,chewable 1 tab PO DAILY Primary Care Provider: Shane Cartwright Referrals: Cornelio Joyner MD [Med Staff - Active Staff] - 3-5 Days if not improving Shane Cartwright MD [Primary Care Provider] - Activity Restrictions/Additional Instructions: Your workup is consistent with a COVID-19 infection which is likely been caused your congestion and cold symptoms. You also have vertigo that seems to be coming from the right ear. Take the meclizine as needed for your symptoms. If this does not help you may then take the Valium. Valium can increase risk of confusion and falls and make you drowsy. Do not operate heavy machinery while taking it. You have also been given a prescription for nausea medicine as needed. Your lipase level was mildly elevated today (128). This is nonspecific level please follow-up with your primary care doctor for this. Print Language: Grenadian Disposition Disposition: Home, Self Care Discharge Date/Time: 07/04/24 16:07
[2024-07-04] MEDS: diazePAM 5 MG Tablet PO (13:20)
--- NOTE | 2024-07-04 13:30 | RAD_ITS ---
INDICATION: vertigo EXAMINATION/TECHNIQUE: X-RAY - XR Chest 2 Views COMPARISON: 06/19/2010 FINDINGS: LINES/DEVICES: None. LUNGS: No consolidation, edema or effusion. No pneumothorax. MEDIASTINUM AND CARDIOVASCULAR STRUCTURES: Cardiac silhouette not enlarged. Central airways and mediastinal contour are unremarkable. BONES AND SOFT TISSUES: No acute changes. RAD/Chest PA and Lateral IMPRESSION: No radiographic evidence of acute cardiopulmonary disease. Electronically Signed: Mal Ferris MD at 15:23 EST ,
[2024-07-04 13:35] LABS: Absolute Neutrophil Count 5.5 X10^3/uL (2.0-7.7); Basophil# 0.04 X10^3/uL; Basophil% 0.5 % (0-1); Eosinophil# 0.04 X10^3/uL; Eosinophils% 0.5 % (0-5); Hematocrit 50.8 % (40-54); Hemoglobin 16.6 g/dL (13.0-16.5); Lymphocyte % 26.5 % (19-41); Mean Corp Hgb Conc 32.7 g/dL (32-36); Mean Corpuscular Hgb 26.6 pg (27.0-32.0); Mean Corpuscular Volume 81.4 fL (80-94); Mean Platelet Vol. 10.2 fl (6.2-12.0); Monocyte# 0.52 X10^3/uL; Monocyte% 6.3 % (0-10); NRBC Flagged by Analyzer 0 % (0-5); Neutrophil # 5.46 X10^3/uL (2.7-7.7); Neutrophil % 65.6 % (47-70); Platelet Count 257 K/mm3 (150-450); RBC Distribution Width CV 13.1 % (11.6-14.6); RBC Distribution Width SD 38.5 fl (35.1-43.9); Red Blood Count 6.24 M/mm3 (4.6-6.2); White Blood Count 8.3 K/mm3 (4.4-11.0)
--- NOTE | 2024-07-04 13:51 | ED.RN ---
Patient noted to dest on monitor to 74% spO2. 2L NC applied. Dr. Ornelas updated. Patients O2 level returned to 94%
[2024-07-04 13:54] LABS: ALB/GLOB Ratio 0.9 RATIO (0.9-2.4); AST(SGOT) 25 U/L (15-37); Alanine Aminotransfer ALT/SGPT 35 U/L (16-61); Albumin, Serum 3.7 g/dL (3.2-5.0); Alkaline Phosphatase 51 U/L (45-117); Anion Gap 8 (5-15); BUN 11 mg/dL (7-18); Chloride 98 mmol/L (98-107); Creatinine, Serum 0.92 mg/dL (0.70-1.30); EST Glomerular Filtration Rate 87 mL/min (>60); Est Glom Filt Rate - Afr Amer 105 mL/min (>60); Estimated Creatinine Clearance 97.18 ml/min; Glucose 136 mg/dL (74-106); Lipase 128 U/L (13-75); Potassium 3.7 mmol/L (3.5-5.1); Protein, Total 7.7 g/dL (6.4-8.2); Sodium Level 136 mmol/L (136-145); Troponin-I HS 7 pg/mL (3.0-78.0)
--- NOTE | 2024-07-04 16:02 | ED.RN ---
Dr. Ornelas bedside
== END 2024-07-04 16:07 | disposition home or self-care (01) ==
PROVIDERS: Emergency Provider Emergency Medicine; PCP Family Medicine; Visit Provider Emergency Medicine
DX: U07.1 COVID-19 (principal); H81.11 Benign paroxysmal vertigo, right ear; I44.0 Atrioventricular block, first degree; Z86.73 Personal history of transient ischemic attack (TIA), and cerebral infarction without residual deficits; Z86.718 Personal history of other venous thrombosis and embolism; Z79.82 Long term (current) use of aspirin; Z79.899 Other long term (current) drug therapy; Z96.652 Presence of left artificial knee joint; Z96.642 Presence of left artificial hip joint
CPT/HCPCS: 70450; 71046; 80053; 83690; 84484; 85025; 87631; 93005; 99284; A4216